=== PATIENT | male | born 1955 | race Caucasian/White ===

== ENCOUNTER → 2018-04-04 08:38 | Outpatient (CLI) | payer BC ==
--- NOTE | ~2018-04-04 | ST ---
PATIENT:VAISHALI BLANK MEDICAL RECORD: [id number] SEX: M LOCATION:[facility] ORDER #: ADMISSION DATE: 04/04/18 AGE OF PATIENT: 62 REFERRING PHYSICIAN: INTERPRETING PHYSICIAN: MORIAH SANDERS MD DATE OF SERVICE: 04/04/2018 PROCEDURE: Nuclear Stress Test. INDICATION: Angina, dyspnea on exertion, shortness of breath. DESCRIPTION: He was exercised on standard [place]an[place] protocol for 7 minutes, terminated due to achievement of maximum target heart rate response with 33 mCi of sestamibi injected at peak stress, 11 mCi were used previously for rest images. FINDINGS: Gated SPECT reveals a preserved ejection fraction of 54% with good wall motioning and thickening and brightening throughout all segments. SPECT imaging: Cardiolite was used as myocardial perfusion agent. There are definite reversible changes inferiorly. This includes the basal, mid, apical, inferior segments as well as the apex itself. The degree of reversibility is mild to moderate. The amount of myocardium involved is moderate. OVERALL IMPRESSION: 1. This is an abnormal nuclear stress test with reversibility inferiorly. 2. Gated SPECT reveals preserved ejection fraction at 54%. In this patient with ongoing symptomatology, the current scan does suggest the presence of hemodynamically significant coronary artery disease. We would proceed with coronary angiography as followup study. TRANSINT:[id number] Voice Confirmation ID: [id number] DOCUMENT ID: [id number] CC: richard Beavers found MORIAH SANDERS MD at 1718 CC: [id number] DICTATION DATE: 04/04/18 1620 TIRE TESTER: 04/05/18 0847 [facility] CLI 04/04/18 [place] [id number] [place] [id number]
== END | disposition home or self-care (01) ==
LOC: D.HCCARDIO 08:38
DX: Z03.89 Encounter for observation for other suspected diseases and conditions ruled out (principal)

== ENCOUNTER 2018-05-04 07:49 | Outpatient (CLI) | payer BC ==
--- NOTE | 2018-05-03 14:57 | HP ---
PATIENT: VAISHALI BLANK MEDICAL RECORD: [id number] ACCOUNT: [id number] LOCATION:[place] : 55 ADMISSION DATE: 05/04/18 PCP: VERA LERNER MD HISTORY AND PHYSICAL EXAMINATION DIAGNOSES: 1. Angina. 2. Abnormal nuclear stress test. HISTORY OF PRESENT ILLNESS: This is a gentleman who presents with anginal symptomatology. Risk stratified with stress testing Cardiolite imaging revealing reversible ischemia, now brought for cardiac catheterization. PHYSICAL EXAMINATION: GENERAL APPEARANCE: Well-nourished, well-developed, appears stated age. Level of distress, comfortable. PSYCHIATRIC: Mental status, alert, normal affect. Orientation, oriented to time, place and person. EYES: Lids and conjunctiva, noninjected. No discharge, no pallor. ENT: Lips, teeth, gums, normal dentition. Oropharynx, no cyanosis, no pallor. NECK: Carotid arteries, bilateral normal upstroke, no bruits, no thrills. JUGULAR VEINS: No jugular venous pressure or distention. CERVICAL LYMPH NODES: Nontender, nonenlarged. THYROID: Not enlarged. Nontender. No nodules. LUNGS: Respiratory effort, unlabored. CHEST: Normal curvature. No thoracic deformity. No chest wall tenderness. Percussion, resonant. Auscultation, clear. No wheezes, no rales, no rhonchi. CARDIOVASCULAR: Precordial exam, nondisplaced. No heaves or pericardial thrills. Rate and rhythm, regular. Heart sounds, normal S1, normal S2. No S3, no gallop, no rub. Systolic murmur, not heard. Diastolic murmur, not heard. EXTREMITIES: No cyanosis, no edema. Peripheral pulses, full and equal in all extremities, except as noted. No bruits appreciated. ABDOMEN: Soft, nondistended. Normal aorta. No bruit. Nontender. No masses. Liver, nontender, no hepatomegaly. Spleen, nontender, no splenomegaly. MUSCULOSKELETAL: No joint tenderness. No joint swelling. No erythema. NEUROLOGICAL: Normal gait, normal strength, normal tone. SKIN: Warm and dry. OVERALL IMPRESSION: Anginal symptomatology with reversibility on nuclear stress testing. There is a high likelihood he does have hemodynamically significant coronary artery disease. We will proceed with coronary angiography. Further care depends upon findings of the angiography. TRANSINT:[id number] Voice Confirmation ID: [id number] DOCUMENT ID: [id number] HISTORY AND PHYSICAL [id number] VAISHALI BLANK JEFFREY MD at 1457 CC: [id number] DICTATION DATE: 05/03/18 1148 FINAL EXPENSE AGENT: 05/03/18 1154 [place] [id number] [place] [id number]
[~2018-05-04] VITALS: Ht 175.3 cm; Wt 77.3 kg
--- NOTE | ~2018-05-04 | HEMODYNAMI ---
PATIENT:VAISHALI BLANK MEDICAL RECORD: [id number] : 55 LOCATION:[facility] ADMISSION DATE: 05/04/18 Generatedon:05/04/201810:25 Patient name: VAISHALI BLANK Patient #: [id number] SSN: D OB: 1955 Date of study: 05/04/2018 Page: Of Hemodynamic Procedure Report Patient Data Patient Demographics Procedure consent was obtained First Name: VAISHALI Gender: Male Last Name: ABHAY : 1955 [facility] Initial: NELLY Age: 62 year(s) Patient #: [id number] Race: Unknown Additional ID: [id number] Contact details [address]: [address] [place] [address] State: [place] City: [place] Zip code: [address] Admission Admission Data Admission Date: 05/04/2018 Admission Time: 7:49 Procedure Procedure Types Cath Procedure Diagnostic Procedure LHC LHC w/Coronaries FFR/IVUS Intra-Coronary IVUS Initial PCI Procedure Coronary Stent Coronary Stent Initial Procedure Description Procedure Date Procedure Date: 05/04/2018 Procedure Start Time: 10:07 Procedure End Time: 10:23 Procedure Staff Name Function Aníbal Marte MD Performing Physician Anu Reno RT Monitor Viktoriya Fisher RT Scrub Sunny Harley RN Nurse Procedure Data Cath Procedure Fluoroscopy Diagnostic fluoroscopy Total fluoroscopy Time: 3.7 time: 3.7 min min Diagnostic fluoroscopy Total fluoroscopy dose: 733 dose: 733 mGy mGy Contrast Material Contrast Material Type Amount (ml) Isovue 300 91 Entry Location Entry Primary Successful Side Size Upsize Upsize Entry Closure Antoine ccessful Closure Location (Fr) 1 (Fr) 2 (Fr) Remarks Device Remarks Radial Right 6 Fr Mechanical artery Short Compression Estimated blood loss: 10 ml Diagnostic catheters Device Type Used For End Catheter Placement DIAGNOSTIC Roach 110cm 5 Procedure Fr catheter ([id number]) Procedure Complications No complications Procedure Medications Medication Administration Route Dosage Oxygen etCO2 Nasal cannula 2 l/min Lidocaine 2% added to field 20 Heparin Flush Bag added to field 2 bags (1000units/500ml NS) 0.9% NaCl I.V. 100 ml/hr Radial Cocktail I.A. 1 syringe (Verapomil 2mg/Nitro 400mcg/Heparin 1500units) Versed I.V. 2 mg Fentanyl I.V. 100 mcg Heparin Bolus I.V. 4000 units Versed I.V. 0.5 mg Fentanyl I.V. 50 mcg Hemodynamics Rest Heart Rate: 85 (bpm) Snapshots Pre Cath Intra NCS Post Cath Vital Signs Time Heart Resp SPO2 etCO2 NIBP (mmHg) Rhythm Pain Sedation Rate (ipm) (%) (mmHg) Status Level (bpm) 9:34:14 70 18 99 0 133/73(102) NSR 0 (11) 10(A) , No pain 9:38:26 75 12 98 0 129/71(106) NSR 0 (11) 10(A) , No pain 9:42:40 74 17 96 37.6 123/64(82) NSR 0 (11) 10(A) , No pain 9:46:54 70 15 99 45.1 117/62(91) NSR 0 (11) 10(A) , No pain 9:51:04 71 19 99 46.6 121/64(82) NSR 0 (11) 10(A) , No pain 9:55:15 72 14 99 45.2 120/62(79) NSR 0 (11) 10(A) , No pain 9:59:29 68 14 99 42.9 107/55(83) NSR 0 (11) 10(A) , No pain 10:03:40 69 15 99 42.9 115/60(87) NSR 0 (11) 10(A) , No pain 10:07:51 72 12 99 45.9 107/62(81) NSR 0 (11) 9(A) , No pain 10:12:01 74 14 98 45.2 98/49(74) NSR 0 (11) 9(A) , No pain 10:16:58 73 14 99 47.4 114/57(88) NSR 0 (11) 9(A) , No pain 10:21:10 73 14 99 45.1 120/60(98) NSR 0 (11) 10(A) , No pain Medications Time Medication Route Dose Verified Delivered Reason Not es Effectiveness by by 9:37:18 Oxygen etCO2 2 l/min Aníbal Correa used for Nasal Rosanna Harley RN procedure cannula 9:37:24 Lidocaine 2% added 20ml Aníbal Spangler for local to vial Rosanna Marte MD anesthetic field 9:37:31 Heparin Flush added 2 bags Aníbal Spangler used for Bag to Rosanna Marte MD procedure (1000units/500ml field NS) 9:37:40 0.9% NaCl I.V. 100 Aníbal Lopezie Per physician ml/hr Rosanna Harley RN 9:46:56 Radial Cocktail I.A. 1 Aníbal Spangler for (Verapomil syringe Rosanna Marte MD vasodilation 2mg/Nitro 400mcg/Heparin 1500units) 10:06:22 Versed I.V. 2 mg Aníbal Lopezie for sedation Rosanna Harley RN 10:06:27 Fentanyl I.V. 100 mcg Aníbal Correa for sedation Rosanna Harley RN 10:10:03 Versed I.V. 0.5 mg Aníbal Correa for sedation Rosanna Harley RN 10:10:08 Fentanyl I.V. 50 mcg Aníbal Correa for sedation Rosanna Harley RN 10:13:52 Heparin Bolus I.V. 4000 Aníbal Lopezie for bethanie ified units Rosanna Harley RN anticoagulation with dr marte Procedure Log Time Note 9:20:37 Anu Reno RT(R) sent for patient. Start room use. 9:25:38 Time tracking: Regular hours (M-F 7:00 - 5:00) 9:25:42 Plan of Care:Hemodynamics will remain stable., Cardiac rhythm will remain stable., Comfort level will be maintained., Respiratory function will remain adequate., Patient/ family verbilizes understanding of procedure., Procedure tolerated without complication., Recovers from procedure without complications.. 9:25:51 Patient received from Pre/Post Procedure Room to CCL 2 Alert and oriented. Tansferred to table in Supine position. 9:25:52 Warm blankets applied, and bryan hugger turned on for patient comfort. 9:25:53 Correct patient and procedure confirmed by team. 9:25:54 Signed procedure consent form obtained from patient. 9:25:55 ECG and BP/O2 sat monitors applied to patient. 9:33:05 Vital chart was started 9:33:06 Baseline sample Acquired. 9:33:09 Full Disclosure recording started 9:33:12 H&P Date Dictated: 05/04/2018 Within 30 days and on chart., H&P Addendum completed by physician on day of procedure. (MUST COMPLETE FOR ALL OUTPATIENTS). 9:33:13 Pre-procedure instructions explained to patient. 9:33:13 Pre-op teaching completed and patient verbalized understanding. 9:33:15 Family in waiting room. 9:33:16 Patient NPO since Midnight. 9:33:18 Is the patient allergic to Iodine/contrast media? No. 9:33:19 Was the patient premedicated? No 9:33:20 Is patient on blood thinner?Yes 9:33:23 ACC The patient was administered the following blood thiners within the last 24 hours: ACCPlavix 9:33:25 Patient diabetic? No. 9:33:27 Previous problem with sedation/anesthesia? No ? 9:33:29 Snore? Yes 9:33:30 Sleep apnea? No 9:33:32 Deviated septum? No 9:33:34 Opens mouth fully? Yes 9:33:34 Sticks out tongue? Yes 9:33:36 Airway obstruction? No ? 9:33:38 Dentures? No ? 9:33:41 Pre procedure: right dorsailis pedis pulse 2+ Normal; easily identifiable; not easily obliterated 9:33:46 Pre procedure: left dorsailis pedis pulse 2+ Normal; easily identifiable; not easily obliterated 9:33:48 Patient pain scale 0/10 ?. 9:33:53 IV patent on arrival in left forearm with 0.9% NaCl at KVO. 9:33:55 Lab results completed and on chart. 9:34:01 Right Radial & Right Groin area was prepped with chlora-prep and draped in sterile fashion 9:34:01 Alarms reviewed by R. N. 9:34:02 Sharps counted by scrub and verified by R.N. 9:37:18 Oxygen 2 l/min etCO2 Nasal cannula was administered by Sunny Harley RN; used for procedure; 9:37:24 Lidocaine 2% 20ml vial added to field was administered by Aníbal Marte MD; for local anesthetic; 9:37:31 Heparin Flush Bag (1000units/500ml NS) 2 bags added to field was administered by Aníbal Marte MD; used for procedure; 9:37:40 0.9% NaCl 100 ml/hr I.V. was administered by Sunny Harley RN; Per physician; 9:46:56 Radial Cocktail (Verapomil 2mg/Nitro 400mcg/Heparin 1500units) 1 syringe I.A. was administered by Aníbal Marte MD; for vasodilation; 9:52:09 Baseline sample Acquired. 10:02:24 Physician arrived 10:: --------ALL STOP TIME OUT------ 10:02:26 Final Timeout: patient, procedure, and site verified with staff and physician. All members of the team are in agreement. 10:02:29 Right Radial & Right Groin site verified by team. 10:02:33 Physical assessment completed. ASA score P 2 - A patient with mild systemic disease as per Aníbal Marte MD. 10:02:38 Sedation plan: IV Moderate Sedation Medication:Versed, Fentanyl 10:06:22 Versed 2 mg I.V. was administered by Sunny Harley RN; for sedation; 10:06:27 Fentanyl 100 mcg I.V. was administered by Sunny Harley RN; for sedation; 10:06:38 Use device set Radial Dx or PCI 10:06:41 Procedure started. 10:07:01 Local anesthetic to right radial artery with Lidocaine 2% by Aníbal Marte MD.INITIAL ACCESS ONLY 10:07:16 A 6 Fr Short sheath was inserted into the Right Radial artery 10:07:55 ACIST Syringe (47846) opened to sterile field. 10:07:56 Medline Cath Pack ([id number]) opened to sterile field. 10:07:57 Bag Decanter () opened to sterile field. 10:07:58 DIAGNOSTIC WIRE .035 260cm J wire (337575) opened to sterile field. 10:07:59 Tegaderm 4 x 4 (1626W) opened to sterile field. 10:08:02 MBrace Wrist Support ([id number]) opened to sterile field. 10:08:29 A DIAGNOSTIC Roach 110cm 5 Fr catheter (085222) was advanced over the wire and used for Procedure. 10:08:31 SHEATH 6FR Slender (80-9780) opened to sterile field. 10:09:05 LV angiography performed. 10:09:08 LV gram done using RAYMOND 10:09:25 LCA angiography performed. 10:: EF : 60 % 10:10:03 Versed 0.5 mg I.V. was administered by Sunny Harley RN; for sedation; 10::08 Fentanyl 50 mcg I.V. was administered by Sunny Harley RN; for sedation; 10:: RCA angiography performed. 10:10:28 Catheter removed. 10:13:52 Heparin Bolus 4000 units I.V. was administered by Sunny Harley RN; for anticoagulation; verified with dr marte 10:13:57 Proceeding to intervention. 10:14:11 INFLATOR Merit BasixCompak (HK8603) opened to sterile field. 10:14:11 CHOICE PT Extra Support 182cm wire ([id number]) opened to sterile field. 10:14:12 [place] Eagleye IVUS Catheter (05834I) opened to sterile field. 10:14:13 GUIDE 6FR XBLAD 3.5 catheter (95722744) opened to sterile field. 10:14:26 6 Fr XBLAD3.5 guide catheter was inserted over the wire 10:14:30 choice wire advanced. 10:14:32 Wire advanced across lesion. 10:17:40 IVUS catheter advanced over wire. 10:17:46 IVUS catheter removed over wire. 10:18:21 Place stent Inflation Number: 1 A INTEGRITY RX 3.0 x 22 stent ([id number]) was prepped and advanced across the Mid LAD. The stent was deployed at 15 TYRONE for 0:14 (min:sec). 10:18:42 TR BAND Standard (BUT22IMJ) opened to sterile field. 10:18:44 ACIST Hand Control (05594) opened to sterile field. 10:18:45 ACIST Manifold (93386) opened to sterile field. 10:20:35 Wire removed. 10:20:36 Guide catheter removed. 10:20:48 Sheath removed intact; hemostasis achieved with Mechanical Compression to the Right Radial artery. 10:20:51 Procedure ended.(Physican Out) 10:21:02 Fluoroscopy time 03.70 minutes. 10:21:07 Fluoroscopy dose: 733 mGy 10:21:07 Flurop Dose total: 733 10:21:14 Contrast amount:Isovue 300 91ml. 10:22:19 TR band inflated with 10cc of air. 10:22:21 Insertion/operative site no bleeding no hematoma. 10:22:23 Post Procedure Pulses reassessed and unchanged 10:22:26 Post-procedure physical assessment completed. ASA score P 2 - A patient with mild systemic disease as per Aníbal Marte MD. 10:22:35 Post procedure rhythm: unchanged. 10:22:37 Estimated blood loss: 10 ml 10:22:39 Post procedure instruction explained to patient.Patient verbalizes understanding. 10:23:09 Procedure type changed to Cath procedure, Diagnostic procedure, LHC, LHC w/Coronaries, FFR/IVUS, Intra-Coronary IVUS Initial, PCI procedure, Coronary Stent, Coronary Stent Initial 10:23:11 Procedure and supply charges have been captured, reviewed, submitted and are correct. 10:23:38 Procedure Complication : No complications 10:23:41 Vital chart was stopped 10:23:42 See physician's report for complete and final results. 10:23:43 Report given to Pre/Post Procedure Room. 10:23:47 Patient transfered to Pre/Post Procedure Room with Stretcher. 10:23:49 Procedure ended. 10:23:49 Full Disclosure recording stopped 10:23:53 End room use (Document Last) Intervention Summary Intervention Notes Time ActionType Lesion and Equipment Action# Pressure Duration Attributes Used 10:18:21 Place stent Mid LAD INTEGRITY RX 1 15 00:14 3.0 x 22 stent ([id number]) Device Usage Item Name Manufacture Quantity Catalog Number Hospital Part Current [facility] Lot# / Charge Number Stock Stock Serial# Code ACIST Acist 1 78892 054229 530239 718647 20 Syringe Human Longevity (74758) Systems Inc Medline Cath Medline 1 [id number] 389540 52308 174516 5 Pack ([id number]) Bag Decanter Microtek 1 2001S 990135 62913 243802 5 () Medical Inc. DIAGNOSTIC St Amadou 1 744743 070564 885613 377593 30 WIRE .035 260cm J wire (655369) Tegaderm 4 x 3M 1 1626W 523188 169216 397720 5 4 (1626W) MBrace Wrist Advanced 1 140-0250-00 552446 47606 106705 5 Support Vascular ([id number]) Dynamics DIAGNOSTIC Terumo 1 40-4233 184219 332781 993024 5 Roach 110cm 5 Fr catheter (400902) SHEATH 6FR Terumo 1 [id number] 459935 565212 536561 5 Slender (80-1060) INFLATOR Merit 1 [id number] 166477 338948 654183 15 [facility] Medical BasixCompak (MS5828) CHOICE PT Herrick 1 [id number] 381848 346730 454603 5 Extra Scientific Support 182cm wire ([id number]) Durham Durham 1 35229E 884718 904261 614773 8 [place] Eagleye IVUS Catheter (57123T) GUIDE 6FR Cardinal 1 [id number] 954948 134694 784498 10 XBLAD 3.5 Health catheter (91162519) INTEGRITY RX Medtronic 1 [id number] 817343 956542 629841 5 [id number] 3.0 x 22 stent ([id number]) TR BAND Terumo 1 [id number] 131037 784666 000496 40 Standard ([id number]) ACIST Hand Acist 1 43441 313058 067283 425006 5 Control Medical (62277) Systems Inc ACIST Acist 1 62634 218384 571845 959620 5 Manifold Medical (11817) Systems Inc Signature Audit [place] Stage Time Signature Unsigned Intra-Procedure 05/04/2018 Anu Reno 10:25:05 AM RT(R) Signatures Monitor : Anu Reno Signature : RT Date : Time : [facility] [address] [place] [address]
[2018-05-04] MEDS ORDERED: PLAVIX75 MG PO ×2 (08:04→10:47)
[2018-05-04 08:12] VITALS: BP 143/57; Ht 175.3 cm; Wt 77.3 kg
[2018-05-04 08:30] LABS: CALC OSMOLALITY 280 mosm/kg (275-300); CALCIUM 9.1 mg/dL (8.5-10.1); CARBON DIOXIDE 26.7 mmol/L (21.0-32.0); CHLORIDE - SERUM 105 mmol/L (98-107); GLUCOSE 94 mg/dL (74-106); SODIUM 140 mmol/L (136-145); UREA NITROGEN 19 mg/dL (7-18); eGFR NON AFRICAN AMERICAN 80 mL/min (90-120)
[2018-05-04 09:03] LABS: BASOPHILS 0.1 % (0-2); EOSINOPHILS 2.2 % (0-7); HEMATOCRIT 47.3 % (42.0-54.0); HEMOGLOBIN 16.3 g/dL (13.5-17.5); IMMATURE GRANULOCYTES 0.3 % (0-5); LYMPHOCYTES 17.9 % (15-50); MCH 30.1 pg (26.0-34.0); MCHC 34.5 g/dL (31.0-37.0); MCV 87.4 fL (80.0-100.0); MEAN PLATELET VOLUME 10.3 fL (7.4-10.4); MONOCYTES 9.5 % (2-11); PLATELET COUNT 254 10x3/uL (130-400); RBC 5.41 10x6/uL (4.20-6.10); RDW 13.4 % (11.5-14.5); WBC 10.6 10x3/uL (4.8-10.8)
[2018-05-04] MEDS ORDERED: BAYER CHEWABLE81 MG PO (10:48)
--- NOTE | 2018-05-04 13:37 | OP ---
PATIENT NAME: VAISHALI BLANK MEDICAL RECORD: [id number] :55 LOCATION:D.CAT ADMISSION DATE: SURGEON: MORIAH SANDERS MD DATE OF OPERATION: 05/04/2018 PROCEDURES: 1. PTCA and stent of LAD. 2. Intravascular ultrasound of the LAD. 3. Left heart catheterization. 4. Selective coronary angiography. 5. Left ventriculogram. INDICATION: Angina and coronary artery disease. PROCEDURE IN DETAIL: After informed consent was obtained and after a detailed explanation of risks, benefits as well as alternative therapies, the patient elected to proceed with angiogram and angioplasty. The right radial area was prepped and draped in normal sterile fashion. Right radial artery was cannulated via modified Seldinger technique with placement of 6-Canadian sheath. All catheters exchanged through this sheath. FINDINGS: The left ventriculogram was performed in a standard 30-degree RAYMOND view, reveals good cardiac wall motion throughout all segments. Overall ejection fraction estimated 60%. SELECTIVE CORONARY ANGIOGRAPHY: 1. Left main is with no significant angiographic disease. 2. Left anterior descending has greater than 80% stenosis in the mid vessel confirmed by intravascular ultrasound. 3. The left circumflex has mild irregularities, but no flow-limiting stenosis. 4. The right coronary has a questionable area of stenosis in the mid vessel that would be better delineated by intravascular ultrasound and a definite 80% stenosis in the distal vessel. PTCA AND STENT OF THE LAD: The stent used is a 3.0 x 22-mm Integrity. Result was 0% residual stenosis. OVERALL IMPRESSION: Successful PTCA and stent of the LAD going from 80% initial stenosis to 0% residual. PLAN: PTCA and stent of the RCA in the near future. TRANSINT:[id number] Voice Confirmation ID: [id number] DOCUMENT ID: [id number] MORIAH SANDERS MD at 1337 CC: [id number] DICTATION DATE: 05/04/18 1022 OIL REFINERY OPERATOR: 05/04/18 1128 [facility] [address] [place] [address]
== END 2018-05-04 14:45 ==
LOC: D.CATH 07:49
PROVIDERS: Internal Medicine Interventional Cardiology
DX: I25.119 Atherosclerotic heart disease of native coronary artery with unspecified angina pectoris (principal); R94.30 Abnormal result of cardiovascular function study, unspecified; Z01.812 Encounter for preprocedural laboratory examination

== ENCOUNTER 2018-05-11 07:57 | Outpatient (CLI) | payer BC ==
[~2018-05-11] VITALS: Ht 175.3 cm; Wt 77.3 kg
--- NOTE | ~2018-05-11 | HP ---
PATIENT: VAISHALI BLANK MEDICAL RECORD: [id number] ACCOUNT: [id number] LOCATION:[place] : 55 ADMISSION DATE: 05/11/18 PCP: VERA LERNER MD HISTORY AND PHYSICAL EXAMINATION ADMITTING DIAGNOSES: 1. Angina. 2. Coronary artery disease. 3. Recent percutaneous transluminal coronary angioplasty stent to left anterior descending with concomitant disease right coronary artery. HISTORY OF PRESENT ILLNESS: This is a gentleman who presents with anginal symptomatology, found to have 2-vessel coronary artery disease of the LAD and RCA, underwent successful PTCA stent of the LAD, now brought back for intervention on the RCA. PHYSICAL EXAMINATION: GENERAL APPEARANCE: Well-nourished, well-developed, appears stated age. Level of distress, comfortable. PSYCHIATRIC: Mental status, alert, normal affect. Orientation, oriented to time, place and person. EYES: Lids and conjunctiva, noninjected. No discharge, no pallor. ENT: Lips, teeth, gums, normal dentition. Oropharynx, no cyanosis, no pallor. NECK: Carotid arteries, bilateral normal upstroke, no bruits, no thrills. JUGULAR VEINS: No jugular venous pressure or distention. CERVICAL LYMPH NODES: Nontender, nonenlarged. THYROID: Not enlarged. Nontender. No nodules. LUNGS: Respiratory effort, unlabored. CHEST: Normal curvature. No thoracic deformity. No chest wall tenderness. Percussion, resonant. Auscultation, clear. No wheezes, no rales, no rhonchi. CARDIOVASCULAR: Precordial exam, nondisplaced. No heaves or pericardial thrills. Rate and rhythm, regular. Heart sounds, normal S1, normal S2. No S3, no gallop, no rub. Systolic murmur, not heard. Diastolic murmur, not heard. EXTREMITIES: No cyanosis, no edema. Peripheral pulses, full and equal in all extremities, except as noted. No bruits appreciated. ABDOMEN: Soft, nondistended. Normal aorta. No bruit. Nontender. No masses. Liver, nontender, no hepatomegaly. Spleen, nontender, no splenomegaly. MUSCULOSKELETAL: No joint tenderness. No joint swelling. No erythema. NEUROLOGICAL: Normal gait, normal strength, normal tone. SKIN: Warm and dry. OVERALL IMPRESSION: Anginal symptomatology with disease of the right coronary artery. We will proceed with transcatheter revascularization of the right coronary artery. TRANSINT:[id number] Voice Confirmation ID: [id number] DOCUMENT ID: [id number] HISTORY AND PHYSICAL [id number] VAISHALI BLANK JEFFREY MD CC: [id number] DICTATION DATE: 05/11/18904 WEIGHT GUESSER: 05/11/18934 [facility] [place] [address] [place] [id number]
--- NOTE | ~2018-05-11 | OP ---
PATIENT NAME: VAISHALI BLANK MEDICAL RECORD: [id number] :55 LOCATION:D.CAT ADMISSION DATE: SURGEON: MORIAH SANDERS MD DATE OF OPERATION: 05/11/2018 DATE OF SERVICE: 05/11/2018 PROCEDURES: 1. PTCA stent RCA. 2. Intravascular ultrasound RCA. 3. Selective coronary angiography. INDICATION: Angina and coronary artery disease. PROCEDURE IN DETAIL: After informed consent was obtained and after a detailed description of risks, benefits as well as alternative therapies, the patient elected to proceed with angiogram and angioplasty. The right radial area was prepped, draped in normal sterile fashion. Right radial artery was cannulated via modified Seldinger technique with placement of 6-Cuban sheath. All catheters exchanged through this sheath. FINDINGS: The right coronary has greater than 80% stenosis proximally confirmed by intravascular ultrasound. This was addressed with a 3.5 x 22 mm Integrity stent. Result was 0% residual stenosis. OVERALL IMPRESSION: Successful percutaneous transluminal coronary angioplasty stent of the right coronary artery going from 80% initial stenosis to 0% residual. TRANSINT:[id number] Voice Confirmation ID: [id number] DOCUMENT ID: [id number] MORIAH SANDERS MD CC: [id number] DICTATION DATE: 05/11/18 1032 SPECIALTY FINISHING UTILITY PERSON: 05/11/18 1105 [facility] [address] [place] [id number]
--- NOTE | ~2018-05-11 | HEMODYNAMI ---
PATIENT:VAISHALI BLANK MEDICAL RECORD: [id number] : 55 LOCATION:[facility] ADMISSION DATE: 05/11/18 Generatedon:05/11/201810:34 Patient name: VAISHALI BLANK Patient #: [id number] SSN: D OB: 1955 Date of study: 05/11/2018 Page: Of Hemodynamic Procedure Report Patient Data Patient Demographics Procedure consent was obtained First Name: VAISHALI Gender: Male Last Name: ABHAY : 1955 [facility] Initial: NELLY Age: 62 year(s) Patient #: [id number] Race: Unknown Additional ID: [id number] Contact details [address]: [address] [place] [address] State: [place] City: [place] Zip code: [address] Admission Admission Data Admission Date: 05/11/2018 Admission Time: 7:57 Weight (lbs.): 169.76 Weight (kg.): 77 Lab Results Lab Result Date: 05/11/2018 Lab Result Time: 0:00 Biochemistry Name Units Result Min Max BUN mg/dl 17 --(---*)-- 7 18 Creatinine mg/dl 1 --(--*-)-- 0.6 1.3 CBC Name Units Result Min Max Hemoglobin g/dl 14.7 --(-*--)-- 13.5 17.5 Procedure Procedure Types Cath Procedure Diagnostic Procedure FFR/IVUS Intra-Coronary IVUS Initial PCI Procedure Coronary Stent Coronary Stent Initial Procedure Description Procedure Date Procedure Date: 05/11/2018 Procedure Start Time: 10:18 Procedure End Time: 10:33 Procedure Staff Name Function Aníbal Marte MD Performing Physician Viktoriya Fisher RT Scrub Sunny Harley RN Nurse Kuldeep Morrison RT Monitor Procedure Data Cath Procedure Fluoroscopy Diagnostic fluoroscopy Total fluoroscopy Time: 3.9 time: 3.9 min min Diagnostic fluoroscopy Total fluoroscopy dose: 307 dose: 307 mGy mGy Contrast Material Contrast Material Type Amount (ml) Isovue 300 55 Entry Location Entry Primary Successful Side Size Upsize Upsize Entry Closure Antoine ccessful Closure Location (Fr) 1 (Fr) 2 (Fr) Remarks Device Remarks Radial Right 6 Fr Mechanical artery Short Compression Estimated blood loss: 10 ml Procedure Complications No complications Procedure Medications Medication Administration Route Dosage Oxygen etCO2 Nasal cannula 2 l/min Lidocaine 2% added to field 20 Heparin Flush Bag added to field 2 bags (1000units/500ml NS) 0.9% NaCl I.V. 100 ml/hr Versed I.V. 1 mg Fentanyl I.V. 50 mcg Heparin Bolus I.V. 4000 units Versed I.V. 1 mg Fentanyl I.V. 50 mcg Radial Cocktail I.A. 1 syringe (Verapomil 2mg/Nitro 400mcg/Heparin 1500units) Hemodynamics Rest HGB: 14.7 (g/dl) Heart Rate: 0 (bpm) Snapshots Pre Cath Intra NCS Post Cath Vital Signs Time Heart Resp SPO2 etCO2 NIBP (mmHg) Rhythm Pain Sedation Rate (ipm) (%) (mmHg) Status Level (bpm) 9:36:16 80 13 94 0 127/70(88) NSR 0 (11) 10(A) , No pain 9:40:30 72 14 98 23.1 128/64(87) NSR 0 (11) 10(A) , No pain 9:44:42 72 13 97 37.2 129/71(103) NSR 0 (11) 10(A) , No pain 9:48:54 74 14 96 37.2 142/72(92) NSR 0 (11) 10(A) , No pain 9:53:12 72 16 96 37.2 128/67(86) NSR 0 (11) 10(A) , No pain 9:57:26 75 14 95 39.5 125/64(86) NSR 0 (11) 10(A) , No pain 10:01:38 72 14 96 35 118/66(89) NSR 0 (11) 10(A) , No pain 10:05:48 72 14 95 41.7 123/63(86) NSR 0 (11) 10(A) , No pain 10:10:00 69 12 96 43.2 111/62(81) NSR 0 (11) 9(A) , No pain 10:14:10 71 11 95 43.9 112/59(86) NSR 0 (11) 9(A) , No pain 10:18:18 66 12 95 42.4 114/63(88) NSR 0 (11) 9(A) , No pain 10:22:30 77 12 93 39.5 106/53(74) NSR 0 (11) 9(A) , No pain 10:26:40 71 13 93 38 110/52(88) NSR 0 (11) 9(A) , No pain 10:30:50 75 13 94 37.3 107/60(85) NSR 0 (11) 10(A) , No pain Medications Time Medication Route Dose Verified Delivered Reason Not es Effectiveness by by 9:41:20 Oxygen etCO2 2 l/min Aníbal Correa used for Nasal Rosanna Harley RN procedure cannula 9:41:26 Lidocaine 2% added 20ml Aníbal Spangler for local to vial Rosanna Marte MD anesthetic field 9:41:32 Heparin Flush added 2 bags Aníbal Spangler for local Bag to Rosanna Marte MD anesthetic (1000units/500ml field NS) 9:41:41 0.9% NaCl I.V. 100 Aníbal Correa Per physician ml/hr Rosanna aHrley RN 10:04:00 Versed I.V. 1 mg Aníbal Correa for sedation Rosanna Harley RN 10:04:05 Fentanyl I.V. 50 mcg Aníbal Correa for sedation Rosanna Harley RN 10:10:09 Versed I.V. 1 mg Aníbal Correa for sedation Rosanna Harley RN 10:10:12 Fentanyl I.V. 50 mcg Aníbal Correa for sedation Rosanna Harley RN 10:19:05 Heparin Bolus I.V. 4000 Aníbal Correa for bethanie ified units Rosanna Harley RN anticoagulation with dr marte 10:19:39 Radial Cocktail I.A. 1 Aníbal Spangler for (Verapomil syringe Rosanna Marte MD vasodilation 2mg/Nitro 400mcg/Heparin 1500units) Procedure Log Time Note 9:20:16 Sunny Harley RN sent for patient. Start room use. 9:31:22 Time tracking: Regular hours (M-F 7:00 - 5:00) 9:31:27 Plan of Care:Hemodynamics will remain stable., Cardiac rhythm will remain stable., Comfort level will be maintained., Respiratory function will remain adequate., Patient/ family verbilizes understanding of procedure., Procedure tolerated without complication., Recovers from procedure without complications.. 9:31:38 Patient received from Pre/Post Procedure Room to CCL 2 Alert and oriented. Tansferred to table in Supine position. 9:31:39 Warm blankets applied, and bryan hugger turned on for patient comfort. 9:31:39 Correct patient and procedure confirmed by team. 9:31:40 Signed procedure consent form obtained from patient. 9:31:41 ECG and BP/O2 sat monitors applied to patient. 9:35:07 Baseline sample Acquired. 9:35:07 Vital chart was started 9:35:18 Rhythm: sinus rhythm 9:35:20 Full Disclosure recording started 9:35:24 H&P Date Dictated: 05/11/2018 Within 30 days and on chart., H&P Addendum completed by physician on day of procedure. (MUST COMPLETE FOR ALL OUTPATIENTS). 9:35:26 Pre-procedure instructions explained to patient. 9:35:26 Pre-op teaching completed and patient verbalized understanding. 9:35:27 Family in waiting room. 9:35:29 Patient NPO since Midnight. 9:35:31 Is the patient allergic to Iodine/contrast media? No. 9:35:32 Was the patient premedicated? No 9:35:33 Is patient on blood thinner?Yes 9:35:43 ACC The patient was administered the following blood thiners within the last 24 hours: ACCPlavix 9:35:45 Patient diabetic? No. 9:35:47 Previous problem with sedation/anesthesia? No ? 9:35:49 Snore? No 9:35:50 Sleep apnea? No 9:35:51 Deviated septum? No 9:35:52 Opens mouth fully? Yes 9:35:53 Sticks out tongue? Yes 9:35:54 Airway obstruction? No ? 9:35:57 Dentures? No ? 9:36:00 Pre procedure: right dorsailis pedis pulse 1+ Palpable, but thready & weak; easily obliterated 9:36:03 Pre procedure: left dorsailis pedis pulse 1+ Palpable, but thready & weak; easily obliterated 9:36:05 Patient pain scale 0/10 ?. 9:36:11 IV patent on arrival in left antecubital with 0.9% NaCl at [facility]. 9:36:13 Lab results completed and on chart. 9:36:29 Right Radial & Right Groin area was prepped with chlora-prep and draped in sterile fashion 9:36:30 Alarms reviewed by R. N. 9:36:30 Sharps counted by scrub and verified by R.N. 9:41:20 Oxygen 2 l/min etCO2 Nasal cannula was administered by Sunny Harley RN; used for procedure; 9:41:26 Lidocaine 2% 20ml vial added to field was administered by Aníbal Marte MD; for local anesthetic; 9:41:32 Heparin Flush Bag (1000units/500ml NS) 2 bags added to field was administered by Aníbal Marte MD; for local anesthetic; 9:41:41 0.9% NaCl 100 ml/hr I.V. was administered by Sunny Harley RN; Per physician; 9:54:29 Baseline sample Acquired. 9:57:26 Zero performed for pressure channel P1 9:57:45 Use device set Radial Dx or PCI 9:57:48 Use device set TAUTH PCI 9:57:51 Tegaderm 4 x 4 ([id number]) opened to sterile field. 9:57:52 ACIST Manifold (73732) opened to sterile field. 9:57:53 ACIST Hand Control (67351) opened to sterile field. 9:57:54 ACIST Syringe (10144) opened to sterile field. 9:57:55 Medline Cath Pack ([id number]) opened to sterile field. 9:57:55 Bag Decanter () opened to sterile field. 9:57:55 DIAGNOSTIC WIRE .035 260cm J wire (986445) opened to sterile field. 9:57:57 MBrace Wrist Support ([id number]) opened to sterile field. 9:57:58 SHEATH 6FR Slender (80-5456) opened to sterile field. 9:58:08 CHOICE PT Extra Support 182cm wire ([id number]) opened to sterile field. 9:59:34 Patient Weight : 169.76 lbs 9:59:53 Lab Result : Hemoglobin 14.7 g/dl 9:59:53 Lab Result : Creatinine 1 mg/dl 9:59:53 Lab Result : BUN 17 mg/dl 9:59:59 --------ALL STOP TIME OUT------ 9:59:59 Final Timeout: patient, procedure, and site verified with staff and physician. All members of the team are in agreement. 10:00:02 Right Radial & Right Groin site verified by team. 10:00:04 Physical assessment completed. ASA score P 2 - A patient with mild systemic disease as per Aníbal Marte MD. 10:00:07 Sedation plan: IV Moderate Sedation Medication:Versed, Fentanyl 10:03:32 INFLATOR Merit BasixCompak (ZU5135) opened to sterile field. 10:04:00 Versed 1 mg I.V. was administered by Sunny Harley RN; for sedation; 10:04:05 Fentanyl 50 mcg I.V. was administered by Sunny Harley RN; for sedation; 10:10:09 Versed 1 mg I.V. was administered by Sunny Harley RN; for sedation; 10:10:12 Fentanyl 50 mcg I.V. was administered by Sunny Harley RN; for sedation; 10:18:49 Procedure started. 10:18:54 Local anesthetic to right radial artery with Lidocaine 2% by Aníbal Marte MD.INITIAL ACCESS ONLY 10:19:05 Heparin Bolus 4000 units I.V. was administered by Sunny Harley RN; for anticoagulation; verified with dr marte 10:19:35 A 6 Fr Short sheath was inserted into the Right Radial artery 10:19:39 Radial Cocktail (Verapomil 2mg/Nitro 400mcg/Heparin 1500units) 1 syringe I.A. was administered by Aníbal Marte MD; for vasodilation; 10:19:51 [place] IVUS Catheter ([id number]) opened to sterile field. 10:19:52 GUIDE 6FR AR 2.0 SH catheter ([id number]) opened to sterile field. 10:20:32 6 Fr AR 2 SH guide catheter was inserted over the wire 10:22:07 CPTXS wire advanced. 10:22:46 Wire removed. unable to cross lesion. 10:23:29 Guide catheter removed. 10:23:41 GUIDE 6FR HS II SH catheter ([id number]) opened to sterile field. 10:24:04 CHOICE PT Extra Support 182cm wire ([id number]) opened to sterile field. 10:24:20 CPTXS wire advanced. 10:24:57 Wire advanced across lesion. 10:25:00 IVUS catheter advanced over wire. 10:26:01 IVUS pass to RCA lesion performed. 10:26:03 IVUS catheter removed over wire. 10:27:28 Place stent Inflation Number: 1 A INTEGRITY RX 3.5 x 22 stent ([id number]) was prepped and advanced across the Mid RCA. The stent was deployed at 13 TYRONE for 0:10 (min:sec). 10:27:51 Stent catheter was removed intact over wire. 10:27:52 Wire removed. 10:27:52 Guide catheter removed. 10:28:42 TR BAND Standard ([id number]) opened to sterile field. 10:28:55 Sheath removed intact; hemostasis achieved with Mechanical Compression to the Right Radial artery. 10:28:57 Procedure ended.(Physican Out) 10:29:09 Fluoroscopy time 03.90 minutes. 10:29:13 Flurop Dose total: 307 10:29:13 Fluoroscopy dose: 307 mGy 10:29:18 Contrast amount:Isovue 300 55ml. 10:29:20 Sharps counted by scrub and verified by R.N. 10:29:26 TR band inflated with 10cc of air. 10:29:27 Insertion/operative site no bleeding no hematoma. 10:29:28 Post Procedure Pulses reassessed and unchanged 10:29:31 Post-procedure physical assessment completed. ASA score P 2 - A patient with mild systemic disease as per Aníbal Marte MD. 10:29:33 Post procedure rhythm: unchanged. 10:29:35 Estimated blood loss: 10 ml 10:29:37 Post procedure instruction explained to patient.Patient verbalizes understanding. 10:29:37 Patient needs reinforcement of post procedure teaching. 10:29:45 Procedure type changed to Cath procedure, Diagnostic procedure, FFR/IVUS, Intra-Coronary IVUS Initial, PCI procedure, Coronary Stent, Coronary Stent Initial 10:29:48 Procedure and supply charges have been captured, reviewed, submitted and are correct. 10:29:50 Procedure Complication : No complications 10:33:07 Vital chart was stopped 10:33:07 See physician's report for complete and final results. 10:33:10 Report given to Pre/Post Procedure Room. 10:33:13 Patient transfered to Pre/Post Procedure Room with Stretcher. 10:33:15 Procedure ended. 10:33:15 Full Disclosure recording stopped 10:33:25 End room use (Document Last) Intervention Summary Intervention Notes Time ActionType Lesion and Equipment Action# Pressure Duration Attributes Used 10:27:28 Place stent Mid RCA INTEGRITY RX 1 13 00:10 3.5 x 22 stent ([id number]) Device Usage Item Name Manufacture Quantity Catalog Number Hospital Part Current Mini mal Lot# / Charge Number Stock Stock Serial# Code Tegaderm 4 x 3M 1 1626W [id number] 353241 100237 5 4 (1626W) ACIST Acist 1 60326 162215 504071 584711 5 Manifold Medical (15652) Systems Inc ACIST Hand Acist 1 81556 947257 823555 932817 5 Control Medical (35396) Systems Inc ACIST Acist 1 06654 229033 433580 736061 20 Syringe Medical (71232) Systems Inc Medline Cath Medline 1 [id number] 878069 15981 695522 5 Pack ([id number]) Bag Decanter Microtek 1 2001S 195956 14389 106361 5 (2001S) Medical Inc. DIAGNOSTIC [place] 1 964935 605123 477266 662769 30 WIRE .035 260cm J wire (701341) MBrace Wrist Advanced 1 140-0250-00 204370 33398 417259 5 Support Vascular ([id number]) Dynamics SHEATH 6FR [place] 1 [id number] 571793 332534 461435 5 Slender (80-1060) CHOICE PT [place] 2 [id number] 903452 802882 794255 5 Extra Scientific Support 182cm wire (7651728G6) INFLATOR Merit 1 QR0040 455170 963933 004778 15 Merit Medical BasixCompak (DK6379) [place] 1 22310P 930007 914462 593539 8 [place] IVUS Catheter (13593C) GUIDE 6FR AR Medtronic 1 [id number] 621250 31996 233871 1 2.0 SH catheter ([id number]) GUIDE 6FR HS Medtronic 1 [id number] 059485 85188 405422 1 II SH catheter ([id number]) INTEGRITY RX Medtronic 1 [id number] 867037 556984 841364 5 [id number] 3.5 x 22 stent ([id number]) TR BAND Terumo 1 [id number] 504774 177584 894570 40 Standard ([id number]) Signature Audit [place] Stage Time Signature Unsigned Intra-Procedure 05/11/2018 Kuldeep Morrison 10:33:58 AM RT(R) Signatures Monitor : Kuldeep Morrison RT Signature : Date : Time : [address] [place] [address]
[~2018-05-11 07:57] MED LIST: BAYER CHEWABLE81 MG PO; PLAVIX75 MG PO
[2018-05-11 08:35] VITALS: BP 124/58; Ht 175.3 cm; Wt 77.3 kg
[2018-05-11 08:56] LABS: BASOPHILS 0.2 % (0-2); HEMATOCRIT 42.7 % (42.0-54.0); HEMOGLOBIN 14.7 g/dL (13.5-17.5); IMMATURE GRANULOCYTES 0.2 % (0-5); MCHC 34.4 g/dL (31.0-37.0); MCV 87.1 fL (80.0-100.0); MEAN PLATELET VOLUME 9.7 fL (7.4-10.4); MONOCYTES 11.4 % (2-11); NEUTROPHILS 66.2 % (40-80); PLATELET COUNT 261 10x3/uL (130-400); RDW 13.1 % (11.5-14.5); WBC 11.1 10x3/uL (4.8-10.8)
[2018-05-11 09:23] LABS: CALC OSMOLALITY 279 mosm/kg (275-300); CALCIUM 9.2 mg/dL (8.5-10.1); CARBON DIOXIDE 26.3 mmol/L (21.0-32.0); CHLORIDE - SERUM 104 mmol/L (98-107); GLUCOSE 98 mg/dL (74-106); POTASSIUM - SERUM 4.1 mmol/L (3.5-5.1); SODIUM 139 mmol/L (136-145); UREA NITROGEN 17 mg/dL (7-18); eGFR NON AFRICAN AMERICAN 80 mL/min (90-120)
== END 2018-05-11 14:30 | disposition home or self-care (01) ==
LOC: D.CATH 07:57
PROVIDERS: Internal Medicine Interventional Cardiology
DX: I25.119 Atherosclerotic heart disease of native coronary artery with unspecified angina pectoris (principal); Z01.812 Encounter for preprocedural laboratory examination

== ENCOUNTER 2018-10-18 19:06 | Observation (INO) | payer BC ==
[~2018-10-18] VITALS: Ht 175.3 cm; Wt 71.1 kg
--- NOTE | ~2018-10-18 | DS ---
PATIENT:VAISHALI GALLOWAY :55 MEDICAL RECORD: [id number] DISCHARGE SUMMARY ADMISSION DATE: 10/18/18 DISCHARGE DATE: 10/19/18 DISCHARGE DIAGNOSES: 1. Unstable angina. 2. Coronary artery disease. 3. Hypertension. 4. Hyperlipidemia. HOSPITAL COURSE: Mr. Galloway presents with unstable anginal symptomatology, non-Q-wave myocardial infarction, found to have significant disease of the LAD and RCA, underwent successful PTCA and stent of both territories, was discharged home with the addition of aspirin and Plavix to his medical regimen. [facility]. TRANSINT:[id number] Voice Confirmation ID: [id number] DOCUMENT ID: [id number] MORIAH SANDERS MD CC: [id number] DICTATION DATE: 10/19/181199 NEUROPHYSIOLOGY TECH: 10/20/18227 DIS IN 10/19/18 [facility] [address] [place] [address]
--- NOTE | ~2018-10-18 | OP ---
PATIENT NAME: VAISHALI BLANK MEDICAL RECORD: [id number] :55 [facility]ATION:[facility] ADMISSION DATE:10/18/18 SURGEON: MORIAH SANDERS MD DATE OF OPERATION: 10/19/2018 PROCEDURES: 1. Laser atherectomy LAD. 2. PTCA stent LAD. 3. PTCA stent RCA. 4. Left heart catheterization. 5. Selective coronary angiography. 6. Left ventriculogram. INDICATION: Non-Q-wave myocardial infarction. PROCEDURE IN DETAIL: After informed consent was obtained and after a detailed description of risks, benefits as well as alternative therapies, the patient elected to proceed with angiogram and angioplasty. The right radial area was prepped and draped in normal sterile fashion. Right radial artery was cannulated via modified Seldinger technique with placement of 6-Romansh sheath. All catheters exchanged through this sheath. FINDINGS: The left ventriculogram was performed in standard 30-degree RAYMOND view, reveals good cardiac wall motion, ejection fraction is 60%. SELECTIVE CORONARY ANGIOGRAPHY: 1. Left main showed no significant angiographic disease. 2. Left anterior descending has previously placed stent with 99% in-stent restenosis and SHAWN 1 flow. 3. Left circumflex has mild irregularities, but no flow-limiting stenosis. 4. The right coronary has previously placed stent with 90% in-stent restenosis. PTCA STENT OF THE RCA: The stent used was a 3.5 x 38 mm [place]. Result was 0% residual stenosis. Laser atherectomy, PTCA stent of the LAD: Laser atherectomy catheter was used at 80/40. Multiple passes were made. Stenting was undertaken with a 3.0 x 30 mm Sandeep, the Result was 0% residual stenosis with anglican of SHAWN 3 flow. OVERALL IMPRESSION: Successful PTCA stent of the LAD and RCA, both going from 90% to 99% initial stenosis to 0% residual. TRANSINT:[id number] Voice Confirmation ID: [id number] DOCUMENT ID: [id number] MORIAH SANDERS MD CC: [id number] DICTATION DATE: 10/19/18 1202 TELEPHONE INSTALLER: 10/19/18 1212 [place] [address]
--- NOTE | ~2018-10-18 | HEMODYNAMI ---
PATIENT:VAISHALI BLANK MEDICAL RECORD: [id number] : 55 [id number] ADMISSION DATE: 10/18/18 Generatedon:10/19/201812:03 Patient name: VAISHALI BLANK Patient #: [id number] SSN: D OB: 1955 Date of study: 10/19/2018 Page: Of Hemodynamic Procedure Report Patient Data Patient Demographics Procedure consent was obtained First Name: VAISHALI Gender: Male Last Name: ABHAY : 1955 [facility] Initial: NELLY Age: 63 year(s) Patient #: [id number] Race: Unknown Additional ID: [id number] Contact details Address: [address] [place] [address] State: [place] City: [place] Zip code: [address] Past Medical History Allergies: No known allergies Admission Admission Data Admission Date: 10/18/2018 Admission Time: 19:43 Room #: D.2118 Height (in.): 74493.12 BSA: 70.16 (m2) Height (cm.): 21268 BMI: 0 (kg/m2) Weight (lbs.): 156.53 Weight (kg.): 71 Lab Results Lab Result Date: 10/19/2018 Lab Result Time: 0:00 Biochemistry Name Units Result Min Max BUN mg/dl 18 --(---*)-- 7 18 Creatinine mg/dl 0.9 --(-*--)-- 0.6 1.3 CBC Name Units Result Min Max Hematocrit % 42.5 --(*---)-- 42 54 Hemoglobin g/dl 14.6 --(-*--)-- 13.5 17.5 Procedure Procedure Types Cath Procedure Diagnostic Procedure [facility] w/Coronaries Sedation Charges Moderate Sedation up to 30 minutes PCI Procedure Coronary Stent Coronary Stent Initial Coronary Atherectomy Atherectomy w/Stent Coronary Initial Procedure Description Procedure Date Procedure Date: 10/19/2018 Procedure Start Time: 11:29 Procedure End Time: 12:03 Procedure Staff Name Function Aníbal Marte MD Performing Physician Viktoriya Fisher RT Scrub Cristina Ratliff RN Nurse Caren Momin RT Monitor Procedure Data Cath Procedure Fluoroscopy Diagnostic fluoroscopy Total fluoroscopy Time: 9.6 time: 9.6 min min Diagnostic fluoroscopy Total fluoroscopy dose: 896 dose: 896 mGy mGy Contrast Material Contrast Material Type Amount (ml) Isovue 300 140 Entry Location Entry Primary Successful Side Size Upsize Upsize Entry Closure Succes sful Closure Location (Fr) 1 (Fr) 2 (Fr) Remarks Device Remarks Radial Right 6 Fr artery Short Estimated blood loss: 10 ml Diagnostic catheters Device Type Used For End Catheter Placement DIAGNOSTIC [place] 110cm 5 Procedure Fr catheter ([id number]) Procedure Complications No complications Procedure Medications Medication Administration Route Dosage 0.9% NaCl I.V. 100 ml/hr Oxygen etCO2 Nasal cannula 2 l/min Lidocaine 2% added to field 20 Heparin Flush Bag added to field 2 bags (1000units/500ml NS) Radial Cocktail added to field 1 syringe (Verapamil 2mg/Nitro 400mcg/Heparin 1500units) Versed I.V. 2 mg Fentanyl I.V. 50 mcg Fentanyl I.V. 50 mcg Heparin Bolus I.V. 4000 units Versed I.V. 2 mg Fentanyl I.V. 50 mcg Plavix P.O. 75 mg Hemodynamics Rest BSA: 70.16 (m2) HGB: 14.6 (g/dl) O2 Consumption: Estimated: 7992.42 (ml/min) O2 Consumption indexed: Estimated:113.92 (ml/min/m) Heart Rate: 62 (bpm) Snapshots Pre Cath Intra NCS Post Cath Vital Signs Time Heart Resp SPO2 etCO2 NIBP (mmHg) Rhythm Pain Sedation Rate (ipm) (%) (mmHg) Status Level (bpm) 10:55:05 66 12 98 33.1 134/75(87) NSR 0 (11) 10(A) , No pain 10:59:23 60 13 97 36.1 129/61(90) NSR 0 (11) 10(A) , No pain 11:03:37 62 10 96 36.8 116/65(80) NSR 0 (11) 10(A) , No pain 11:07:51 60 13 97 39.1 115/56(80) NSR 0 (11) 10(A) , No pain 11:12:05 59 15 97 39.8 105/56(76) NSR 0 (11) 10(A) , No pain 11:16:15 57 14 97 40.6 113/54(77) NSR 0 (11) 10(A) , No pain 11:20:31 57 15 97 40.6 105/51(71) NSR 0 (11) 10(A) , No pain 11:24:43 60 15 97 39.8 106/53(76) NSR 0 (11) 10(A) , No pain 11:28:55 58 19 97 39.1 113/56(80) NSR 0 (11) 10(A) , No pain 11:33:02 68 15 96 29.3 94/49(70) NSR 0 (11) 10(A) , No pain 11:37:10 70 11 98 34.5 113/58(82) NSR 0 (11) 9(A) , No pain 11:41:22 64 11 95 36 104/52(74) NSR 0 (11) 9(A) , No pain 11:45:32 64 11 96 34.5 118/61(81) NSR 0 (11) 10(A) , No pain 11:49:46 65 13 96 36 124/67(101) NSR 0 (11) 9(A) , No pain 11:54:00 64 18 97 39.1 128/67(103) NSR 0 (11) 9(A) , No pain 11:58:14 66 18 97 40.6 131/70(108) NSR 0 (11) 10(A) , No pain 12:02:32 68 9 98 36.8 133/70(102) NSR 0 (11) 9(A) , No pain Medications Time Medication Route Dose Verified Delivered Reason Not es Effectiveness by by 10:54:34 0.9% NaCl I.V. 100 Aníbal Cristina used for ml/hr Rosanna Ratliff tax appraiser 10:54:40 Oxygen etCO2 2 l/min Aníbal Cristina used for Nasal Rosanna Ratliff procedure cannula RN 10:54:45 Lidocaine 2% added 20ml Aníbal Spangler for local to vial Rosanna Marte MD anesthetic field 10:54:52 Heparin Flush added 2 bags Aníbal Spangler used for Bag to Rosanna Marte MD procedure (1000units/500ml field NS) 10:54:57 Radial Cocktail added 1 Aníbal Aníbal used for (Verapamil to syringe Rosanna Marte MD procedure 2mg/Nitro field 400mcg/Heparin 1500units) 11:28:56 Fentanyl I.V. 50 mcg Aníbal Cristina for sedation Rosanna Ratliff RN 11:29:45 Versed I.V. 2 mg Aníbal Cristina for sedation Rosanna Ratliff RN 11:33:42 Fentanyl I.V. 50 mcg Aníbal Cristina for sedation Rosanna Ratliff RN 11:38:08 Heparin Bolus I.V. 4000 Aníbal Cristina for bethanie ified units Rosanna Ratliff anticoagulation with Dr. SCARLET Marte 11:47:37 Versed I.V. 2 mg Aníbal Cristina for sedation Rosanna Ratliff RN 11:47:41 Fentanyl I.V. 50 mcg Aníbal Cristina for sedation Rosanna Ratliff RN 11:59:22 Plavix P.O. 75 mg Aníbal Cristina for Rosanna Ratliff antiplatelet RN therapy Procedure Log Time Note 10:31:25 Signed procedure consent form obtained from patient. 10:31:26 Diagnostic Cath status Urgent 10:31:27 Time tracking: Regular hours (M-F 7:00 - 5:00) 10:31:30 Plan of Care:Hemodynamics will remain stable., Cardiac rhythm will remain stable., Comfort level will be maintained., Respiratory function will remain adequate., Patient/ family verbilizes understanding of procedure., Procedure tolerated without complication., Recovers from procedure without complications.. 10:31:36 Patient allergic to No known allergies 10:33:03 Lab Result : BUN 18 mg/dl 10:33:03 Lab Result : Hemoglobin 14.6 g/dl 10:33:03 Lab Result : Creatinine 0.9 mg/dl 10:33:03 Lab Result : Hematocrit 42.5 % 10:33:10 Patient Weight : 156.53 lbs 10:33:14 Patient Height : 88137.12 inches 10:35:30 Cristina Ratliff RN sent for patient. Start room use. 10:45:53 Patient received from Med II to CCL 1 Alert and oriented. Tansferred to table in Supine position. 10:45:56 Warm blankets applied, and bryan hugger turned on for patient comfort. 10:45:57 Correct patient and procedure confirmed by team. 10:45:57 ECG and BP/O2 sat monitors applied to patient. 10:53:57 Vital chart was started 10:54:34 0.9% NaCl 100 ml/hr I.V. was administered by Cristina Ratliff RN; used for procedure; 10:54:40 Oxygen 2 l/min etCO2 Nasal cannula was administered by Cristina Ratliff RN; used for procedure; 10:54:45 Lidocaine 2% 20ml vial added to field was administered by Aníbal Marte MD; for local anesthetic; 10:54:52 Heparin Flush Bag (1000units/500ml NS) 2 bags added to field was administered by Aníbal Marte MD; used for procedure; 10:54:57 Radial Cocktail (Verapamil 2mg/Nitro 400mcg/Heparin 1500units) 1 syringe added to field was administered by Aníbal Marte MD; used for procedure; 10:58:22 Baseline sample Acquired. 10:58:25 Rhythm: sinus rhythm 10:58:26 Full Disclosure recording started 10:58:29 Pre-procedure instructions explained to patient. 10:58:29 Pre-op teaching completed and patient verbalized understanding. 10:58:32 Family unavailable. 10:58:48 Patient NPO since Midnight. 10:58:50 Is patient on blood thinner?Yes 10:58:58 PRE LOADED ON PLAVIX 10:59:00 Patient diabetic? No. 10:59:03 Previous problem with sedation/anesthesia? No ? 10:59:04 Snore? Yes 10:59:05 Sleep apnea? No 10:59:06 Deviated septum? No 10:59:07 Opens mouth fully? Yes 10:59:07 Sticks out tongue? Yes 10:59:09 Airway obstruction? No ? 10:59:13 Dentures? Yes OUT 10:59:18 Pre procedure: right dorsailis pedis pulse 2+ Normal; easily identifiable; not easily obliterated 10:59:54 Modified Nate's test Ulnar < 7 seconds 10:59:58 Patient pain scale 0/10 ?. 11:00:06 IV patent on arrival in right forearm with 0.9% NaCl at [facility]. 11:00:09 Lab results completed and on chart. 11:00:11 Right Radial & Right Groin area was prepped with chlora-prep and draped in sterile fashion 11:00:12 Alarms reviewed by R. N. 11:00:13 Sharps counted by scrub and verified by R.N. 11:00:15 Use device set Radial Dx or PCI 11:00:16 ACIST Syringe (55461) opened to sterile field. 11:00:17 Medline Cath Pack ([id number]) opened to sterile field. 11:00:17 ACIST Hand Control (23884) opened to sterile field. 11:00:18 ACIST Manifold (99303) opened to sterile field. 11:00:18 Tegaderm 4 x 4 (1626W) opened to sterile field. 11:00:20 Bag Decanter (2002S) opened to sterile field. 11:00:24 DIAGNOSTIC WIRE .035 260cm J wire (145692) opened to sterile field. 11:00:24 MBrace Wrist Support ([id number]) opened to sterile field. 11:00:25 SHEATH 6FR Slender (70-9795) opened to sterile field. 11:25:31 Zero performed for pressure channel P1 11:28:11 --------ALL STOP TIME OUT------ 11:28:11 Final Timeout: patient, procedure, and site verified with staff and physician. All members of the team are in agreement. 11:28:13 Right Radial & Right Groin site verified by team. 11:28:15 Maximum allowable Isovue 300 dose 300ml. Physician notified. (300ml for normal creatinines. For patients with creatinine of 1.7 or higher multiply weight(kg) x 5 divided by creatinine.) 11:28:18 Fire Safety Assessment: A--An alcohol-based skin anteseptic being used preoperatively., C--Open oxygen or nitrous oxide is being used., D--An ESU, laser, or fiber-optic light is being used. 11:28:21 Physical assessment completed. ASA score P 2 - A patient with mild systemic disease as per Aníbal Marte MD. 11:28:23 Sedation plan: IV Moderate Sedation Medication:Versed, Fentanyl 11:28:56 Fentanyl 50 mcg I.V. was administered by Cristina Ratliff RN; for sedation; 11::45 Versed 2 mg I.V. was administered by Cristina Ratliff RN; for sedation; 11:29:51 Procedure started. 11:29:58 Local anesthetic to right radial artery with Lidocaine 2% by Aníbal Marte MD.INITIAL ACCESS ONLY 11:30:42 A 6 Fr Short sheath was inserted into the Right Radial artery 11:30:50 A DIAGNOSTIC [place] 110cm 5 Fr catheter ([id number]) was advanced over the wire and used for Procedure. 11:31:39 LV gram done using RAYMOND 11::42 Injector settings: Ml/sec: 7, Volume: 15, 11:32:12 EF : 60 % 11:32:26 LCA angiography performed. 11:33:42 Fentanyl 50 mcg I.V. was administered by Cristina Ratliff RN; for sedation; 11:33:47 Catheter exchanged over wire. 11:33:59 UNABLE TO ENGAGE RCA 11:34:06 GUIDE 6FR AR 1.0 SH catheter ([id number]) opened to sterile field. 11:35:07 INFLATOR Merit BasixCompak (WN4147) opened to sterile field. 11:35:07 CHOICE PT Extra Support 182cm wire ([id number]) opened to sterile field. 11:35:19 6 Fr AR 1 SH guide catheter was inserted over the wire 11:36:05 RCA angiography performed. 11:36:07 Catheter exchanged over wire. 11:36:33 GUIDE 6FR HS II SH catheter ([id number]) opened to sterile field. 11:37:35 6 Fr HS2 SH guide catheter was inserted over the wire 11:38:08 Heparin Bolus 4000 units I.V. was administered by Cristina Ratliff RN; for anticoagulation; verified with Dr. Marte 11:38:40 CHOICE ES 182 wire advanced. 11:38:45 Wire advanced across lesion. 11:40:46 Place stent Inflation Number: 1 A KEN RX 3.5 x 38 stent ([id number]) was prepped and advanced across the Prox RCA 90. The stent was deployed at 19 TYRONE for 0:10 (min:sec) 0. 11:41:03 Stent catheter was removed intact over wire. 11:41:04 Wire removed. 11:41:05 Guide catheter removed. 11:42:16 GUIDE 6FR XB 3.5 catheter ([id number]) opened to sterile field. 11:43:35 LASER ELCA 0.9 Rx atherectomy catheter (101637) opened to sterile field. 11:44:56 6 Fr XB 3.5 guide catheter was inserted over the wire 11:46:32 Guide Catheter removed. unable to cannulate vessel. 11:47:04 GUIDE 6FR EBU 3.0 catheter ([id number]) opened to sterile field. 11:47:31 6 Fr EBU 3 guide catheter was inserted over the wire 11:47:37 Versed 2 mg I.V. was administered by Cristina Ratliff RN; for sedation; 11:47:41 Fentanyl 50 mcg I.V. was administered by Cristina Ratliff RN; for sedation; 11:48:23 CHOICE ES 182 wire advanced. 11:48:25 Wire advanced across lesion. 11:49:26 Inflate balloon Inflation number: 1 A EUPHORA 2.5 x 20 Balloon ([id number]) was prepped and advanced across the Prox LAD , then inflated to 13 TYRONE for 0:00 (min:sec) . 11:49:30 Inflation number: 2 The EUPHORA 2.5 x 20 Balloon ([id number]) was reinflated across the Prox LAD , to 13 TYRONE for 0:00 (min:sec) . 11:49:36 Inflation number: 3 The EUPHORA 2.5 x 20 Balloon ([id number]) was reinflated across the Prox LAD , to 13 TYRONE for 0:00 (min:sec) . 11:49:54 Balloon removed over the wire. 11:51:53 Laser pass to pLAD with Fluence of 80 and Rate of 40. 11:52:49 Laser total pulses delivered: 1999 11:52:53 Laser total treatment time: 0 minutes 50 seconds 11:53:53 Laser catheter removed. 11:56:08 Place stent Inflation Number: 4 A KEN RX 3.0 x 30 stent ([id number]) was prepped and advanced across the Prox LAD 99. The stent was deployed at 17 TYRONE for 0:00 (min:sec) 0. 11:57:18 Stent catheter was removed intact over wire. 11:57:18 Wire removed. 11:57:19 Guide catheter removed. 11:57:48 Procedure ended.(Physican Out) 11:58:37 TR BAND Standard ([id number]) opened to sterile field. 11:59:14 Fluoroscopy time 09.60 minutes. 11:59:22 Plavix 75 mg P.O. was administered by Cristina Ratliff RN; for antiplatelet therapy; :59:24 Flurop Dose total: 896 11:59:24 Fluoroscopy dose: 896 mGy 11:59:28 Contrast amount:Isovue 300 140ml. 11:59:31 Sharps counted by scrub and verified by R.N. 11:59:33 TR band inflated with 10cc of air. 11:59:41 Post-procedure physical assessment completed. ASA score P 2 - A patient with mild systemic disease as per Aníbal Marte MD. 11:59:43 Post procedure rhythm: sinus rhythm 11:59:48 Estimated blood loss: 10 ml 11:59:49 Post procedure instruction explained to patient.Patient verbalizes understanding. 11:59:50 Patient needs reinforcement of post procedure teaching. 12:00:24 Procedure type changed to Cath procedure, Diagnostic procedure, LHC, LHC w/Coronaries, Sedation Charges, Moderate Sedation up to 30 minutes, PCI procedure, Coronary Stent, Coronary Stent Initial, Coronary Atherectomy, Atherectomy w/Stent Coronary Initial 12:00:57 Procedure and supply charges have been captured, reviewed, submitted and are correct. 12:00:59 Procedure Complication : No complications 12:03:03 Vital chart was stopped 12:03:03 See physician's report for complete and final results. 12:03:07 Report given to Pre/Post Procedure Room. 12:03:09 Patient transfered to Pre/Post Procedure Room with Bed. 12:03:11 Procedure ended. 12:03:11 Full Disclosure recording stopped 12:03:15 End room use (Document Last) Intervention Summary Intervention Notes Time ActionType Lesion and Equipment Used Action# Pressure Duration Attributes 11:40:46 Place stent Prox RCA KEN RX 3.5 x 1 19 00:10 38 stent ([id number]) 11:49:26 Inflate Prox LAD EUPHORA 2.5 x 1 13 00:00 balloon 20 Balloon ([id number]) 11:49:30 Reinflate Prox LAD EUPHORA 2.5 x 2 13 00:00 balloon 20 Balloon ([id number]) 11:49:36 Reinflate Prox LAD EUPHORA 2.5 x 3 13 00:00 balloon 20 Balloon ([id number]) 11:56:08 Place stent Prox LAD KEN RX 3.0 x 4 17 00:00 30 stent ([id number]) Device Usage Item Name Manufacture Quantity Catalog Number Hospital Part Current M inimal Lot# / Charge Number Stock Stock Serial# Code ACIST Syringe Acist 1 78669 292318 955030 953270 2 0 (39405) Medical Systems Inc Medline Cath Medline 1 [id number] 559664 64285 431319 5 Pack ([id number]) ACIST Hand Acist 1 27061 343052 899787 187563 5 Control Medical (72608) Systems Inc ACIST Manifold Acist 1 99352 744702 318750 649747 5 (51134) Medical Systems Inc Tegaderm 4 x 4 3M 1 1626W 530868 232479 054728 5 (1626W) Bag Decanter Microtek 1 2002S 764672 68001 604886 5 (2001S) Medical Inc. DIAGNOSTIC [facility] [place] 1 735666 174994 963110 040080 3 0 WIRE .035 260cm J wire (504452) MBrace Wrist Advanced 1 140-0250-00 888104 91330 741739 5 Support Vascular ([id number]) Dynamics SHEATH 6FR Terumo 1 [id number] 313140 158078 792186 5 Slender (80-1060) DIAGNOSTIC Terumo 1 40-5013 090067 833699 236044 5 [place] 110cm 5 Fr catheter (136110) GUIDE 6FR AR Medtronic 1 [id number] 809171 69708 572081 1 1.0 SH catheter ([id number]) INFLATOR Merit Merit 1 MY7319 375107 151960 555885 1 5 [email or web address] Medical (MO8750) CHOICE PT [place] 1 [id number] 816100 724181 585714 5 Extra Support Scientific 182cm wire ([id number]) GUIDE 6FR HS Medtronic 1 [id number] 865951 58898 335714 1 II SH catheter ([id number]) KEN RX 3.5 x Medtronic 1 [id number] 467623 5239267 299400 5 [id number] 38 stent ([id number]) GUIDE 6FR XB Cardinal 1 [id number] 873705 392820 613073 2 3.5 catheter Health (24612024) LASER ELCA 0.9 Terri 1 110004 605192 223811 349844 5 Rx atherectomy [facility] catheter (090842) (637915) GUIDE 6FR EBU Medtronic 1 [id number] 298066 84482 232572 0 3.0 catheter ([id number]) EUPHORA 2.5 x Medtronic 1 [id number] 132266 300942 278847 5 [id number] 20 Balloon ([id number]) KEN RX 3.0 x Medtronic 1 [id number] 041133 3781138 116795 5 [id number] 30 stent ([id number]) TR BAND Terumo 1 [id number] 621226 146533 948841 4 0 Standard ([id number]) Signature Audit [place] Time Signature Unsigned Intra-Procedure 10/19/2018 Caren Momin 12:03:34 PM RT(R) Signatures Monitor : Caren Momin Signature : RT Date : Time : [address] [place] [address]
[2018-10-18 20:44] VITALS: BP 108/60
[2018-10-18 20:49] LABS: CREATINE KINASE 130 UL (21-232)
[2018-10-18 20:52] LABS: TROPONIN-I 0.196 ng/mL (0.000-0.060)
[2018-10-19 01:29] VITALS: BP 117/62
[2018-10-19 01:30] VITALS: BP 123/55; Ht 175.3 cm; Wt 71.1 kg
[2018-10-19 05:17] LABS: BASOPHILS 0.2 % (0-2); EOSINOPHILS 5.8 % (0-7); HEMATOCRIT 42.5 % (42.0-54.0); HEMOGLOBIN 14.6 g/dL (13.5-17.5); IMMATURE GRANULOCYTES 0.2 % (0-5); LYMPHOCYTES 32.6 % (15-50); MCH 28.9 pg (26.0-34.0); MCHC 34.4 g/dL (31.0-37.0); MCV 84.2 fL (80.0-100.0); MEAN PLATELET VOLUME 10.1 fL (7.4-10.4); MONOCYTES 12.1 % (2-11); NEUTROPHILS 49.1 % (40-80); PLATELET COUNT 224 10x3/uL (130-400); RBC 5.05 10x6/uL (4.20-6.10); RDW 13.3 % (11.5-14.5); WBC 6.5 10x3/uL (4.8-10.8)
[2018-10-19 05:45] LABS: CALC OSMOLALITY 282 mosm/kg (275-300); CALCIUM 8.9 mg/dL (8.5-10.1); CARBON DIOXIDE 28.1 mmol/L (21.0-32.0); CHLORIDE - SERUM 107 mmol/L (98-107); CKMB 23.2 U/L (0.0-3.6); CREATINE KINASE 206 UL (21-232); CREATININE - SERUM 0.9 mg/dL (0.6-1.3); GLUCOSE 98 mg/dL (74-106); POTASSIUM - SERUM 4.2 mmol/L (3.5-5.1); SODIUM 141 mmol/L (136-145); UREA NITROGEN 18 mg/dL (7-18); eGFR NON AFRICAN AMERICAN > 90 mL/min (90-120)
[2018-10-19 05:46] LABS: TROPONIN-I 3.716 ng/mL (0.000-0.060)
[2018-10-19 06:22] VITALS: BP 121/67
[2018-10-19 08:13] VITALS: BP 115/58
--- NOTE | 2018-10-19 09:40 | HP ---
PATIENT: VAISHALI GALLOWAY MEDICAL RECORD: [id number] ACCOUNT: [id number] LOCATION:[facility].2118 : 55 ADMISSION DATE: 10/18/18 PCP: VERA LERNER MD HISTORY AND PHYSICAL EXAMINATION DIAGNOSES: 1. Non-Q-wave myocardial infarction. 2. Coronary artery disease. 3. Previous 2-vessel percutaneous transluminal coronary angioplasty stent April and May. 4. Smoking history. HISTORY OF PRESENT ILLNESS: Mr. Galloway is a gentleman known to us with a past history of 2-vessel coronary artery disease, PTCA stent of the LAD and RCA at the end of April and beginning of May. He was doing well until the last 2 days. He has had multiple episodes of chest discomfort that lasted approximately 30 minutes. He had a severe episode yesterday. His troponin was elevated. He was sent here. His troponin has gone up further. He does continue to have episodes of chest pain this morning. He is not on any medications at this time as it has been a problem with compliance with him with medications; however, without any medications his heart rate is in the 60s and systolic blood pressure 115. Hence, there is little room to work with any antianginal medications. He is on a nitro patch now, he continues to have the chest discomfort with the elevated troponins. PHYSICAL EXAMINATION: GENERAL APPEARANCE: Well-nourished, well-developed, appears stated age. Level of distress, comfortable. PSYCHIATRIC: Mental status, alert, normal affect. Orientation, oriented to time, place and person. EYES: Lids and conjunctiva, noninjected. No discharge, no pallor. ENT: Lips, teeth, gums, normal dentition. Oropharynx, no cyanosis, no pallor. NECK: Carotid arteries, bilateral normal upstroke, no bruits, no thrills. JUGULAR VEINS: No jugular venous pressure or distention. CERVICAL LYMPH NODES: Nontender, nonenlarged. THYROID: Not enlarged. Nontender. No nodules. LUNGS: Respiratory effort, unlabored. CHEST: Normal curvature. No thoracic deformity. No chest wall tenderness. Percussion, resonant. Auscultation, clear. No wheezes, no rales, no rhonchi. CARDIOVASCULAR: Precordial exam, nondisplaced. No heaves or pericardial thrills. Rate and rhythm, regular. Heart sounds, normal S1, normal S2. No S3, no gallop, no rub. Systolic murmur, not heard. Diastolic murmur, not heard. EXTREMITIES: No cyanosis, no edema. Peripheral pulses, full and equal in all extremities, except as noted. No bruits appreciated. ABDOMEN: Soft, nondistended. Normal aorta. No bruit. Nontender. No masses. Liver, nontender, no hepatomegaly. Spleen, nontender, no splenomegaly. MUSCULOSKELETAL: No joint tenderness. No joint swelling. No erythema. NEUROLOGICAL: Normal gait, normal strength, normal tone. SKIN: Warm and dry. OVERALL IMPRESSION: Non-Q-wave myocardial infarction with continued chest pain, abnormal ECG with T-wave inversions anteriorly suggestive of anterior ischemia. Heart rate and blood pressure are optimal. There is little room to work with any further medical management, hence we will proceed with coronary angiography. Further care depends upon findings of the angiography. HISTORY AND PHYSICAL [id number] VAISHALI GALLOWAY TRANSINT:[id number] Voice Confirmation ID: [id number] DOCUMENT ID: [id number] MORIAH SANDERS MD at 0940 CC: [id number] DICTATION DATE: 10/19/18901 BUSINESS ANALYST INTERN: 10/19/18 09 ADM IN [facility] [address] [place] [address]
--- NOTE | 2018-10-19 10:42 | NUR ---
PRE-OPS GIVEN. TO OPERATIONAL TRAINER BY BED.
--- NOTE | 2018-10-19 12:22 | NUR ---
RECEIVED PT FROM NURSE CLINICAL. PT SLEEPING BUT AWAKENS EASILY TO VERBAL STIMULI. DENIES ANY C/O CHEST PAIN OR NAUSEA AT THIS TIME. SINUS CATALINA AT 59. BP IS 119/64 TR BAND IS CDI TO RIGHT WRIST, FINGERS WARM AND CAP REFILL IS BRISK. RESP WITH EASE. CALL LIGHT IN REACH.
--- NOTE | 2018-10-19 12:38 | NUR ---
PT SLEEPING, AWAKENS EASILY TO VERBAL STIMULI, DENIES ANY C/O. TR BAND IS CDI, FINGERS WARM AND CAP REFILL IS BRISK. NSR, RATE IS 62. BP IS 121/70 NO FAMILY AT BEDSIDE, CALL LIGHT IN REACH.
--- NOTE | 2018-10-19 13:22 | NUR ---
1310 PT ALERT, SITTING UP IN BED VISITING WITH FRIEND. SANDWICH AND PO FLUIDS SERVED. TR BAND IS CDI TO RIGHT HAND, FINGERS WARM AND CAP REFILL IS BRISK. VSS, DENIES ANY C/O NE NEEDS AT THIS TIME.
[2018-10-19] MEDS ORDERED: PLAVIX75 MG PO (13:51)
[2018-10-19] MEDS ORDERED: BAYER CHEWABLE81 MG PO (14:09)
--- NOTE | 2018-10-19 14:22 | NUR ---
1340 PT HAS CANDIS SANDWICH AND PO FLUIDS WITH NO C/O. TR BAND IS CDI, FINGERS WARM AND CAP REFILL IS BRISK. PT IS ALERT AND DENIES ANY C/O. VSS, FRIEND AT BEDSIDE
--- NOTE | 2018-10-19 14:33 | NUR ---
PT SITTING UP IN ROOM, VISITING WITH . TR BAND IS CDI, FINGERS WARM AND CAP REFILL IS BRISK. VSS. DENIES ANY C/O CHEST PAIN. CALL LIGHT IN REACH.
--- NOTE | 2018-10-19 15:05 | NUR ---
3 CC OF AIR WEANED FROM TR BAND WITH NO BLEEDING NOTED. FINGERS WARM AND CAP REFILL IS BRISK. PT IS ALERT AND DENIES ANY C/O. VSS.
--- NOTE | 2018-10-19 15:25 | NUR ---
3 CC OF AIR WEANED FROM TR BAND WITH NO BLEEDING NOTED. FINGERS WARM AND CAP REFILL IS BRISK.
--- NOTE | 2018-10-19 16:26 | NUR ---
1545 ALL REMAINING AIR WEANED FROM TR BAND WITH NO BLEEDING NOTED. FINGERS WARM AND CAP REFILL IS BRISK. RADIAL PULSE PALPABLE. DC INSTRUCTIONS REVIEWED WITH PT AND WHO VERBALIZE UNDERSTANDING. PLAVIX PRESCRIPTION TO PT AND PT AND VERBALIZE UNDERSTANDING TO START THIS MEDICATION TOMORROW. 2X2 and TEGADERM APPLIED TO RIGHT WRIST, TR BAND REMOVED. 1600 IV DC'D WITH CATH INTACT AND PTR IS DRESING FOR DC TO HOME. 1615 PT HAS AMBULATED TO THE BATHROOM AND VOIDED QS. DENIES ANY C/O. DRESSING REMAINS CDI TO RIGHT WRIST, WRIST IMMOBILIZER IN PLACE. PT ESCORTED TO PRIVATE AUTO VIA WC BY NURSE WITH DRIVING HIM HOME. PT HAS ALL PERSONAL BELONGINGS AND DC INSTRUCTIONS AT TIME OF DC TO HOME.
== END 2018-10-19 16:15 | disposition home or self-care (01) ==
LOC: D.ER 19:06 → OBSVTIME 19:43 → D.M2 19:43 → D.CLR 10-19 12:15
PROVIDERS: Family Medicine; ADMIT Internal Medicine Interventional Cardiology; ATTEND Internal Medicine Interventional Cardiology
DX: I21.4 Non-ST elevation (NSTEMI) myocardial infarction (principal); R94.30 Abnormal result of cardiovascular function study, unspecified; I25.110 Atherosclerotic heart disease of native coronary artery with unstable angina pectoris; I10 Essential (primary) hypertension; E78.5 Hyperlipidemia, unspecified; T82.855A Stenosis of coronary artery stent, initial encounter; Y83.9 Surgical procedure, unspecified as the cause of abnormal reaction of the patient, or of later complication, without mention of misadventure at the time of the procedure

== ENCOUNTER → 2019-05-21 09:36 | Outpatient (CLI) | payer BC ==
[2018-10-19 01:30] VITALS: BMI 23.1
== END | disposition home or self-care (01) ==
LOC: D.HCCARDIO 09:36
PROVIDERS: ATTEND Internal Medicine Cardiovascular Disease
DX: I25.10 Atherosclerotic heart disease of native coronary artery without angina pectoris (principal)

== ENCOUNTER → 2019-06-03 08:36 | Outpatient (CLI) | payer BC ==
[~2019-06-03] VITALS: Ht 175.3 cm; Wt 75.5 kg
--- NOTE | ~2019-06-03 | HEMODYNAMI ---
PATIENT:VAISHALI BLANK MEDICAL RECORD: [id number] : 55 LOCATION:[facility] ADMISSION DATE: 06/03/19 Generatedon:06/03/201911:29 Patient name: VAISHALI BLANK Patient #: [id number] SSN: D OB: 1955 Date of study: 06/03/2019 Page: Of Hemodynamic Procedure Report Patient Data Patient Demographics Procedure consent was obtained First Name: VAISHALI Gender: Male Last Name: ABHAY : 1955 [facility] Initial: NELLY Age: 63 year(s) Patient #: [id number] Race: Unknown Additional ID: [id number] Contact details [address]: [address] [place] [address] State: [place] City: [place] Zip code: [address] Past Medical History Allergies: No known allergies Admission Admission Data Admission Date: 06/03/2019 Admission Time: 8:36 Procedure Procedure Types Cath Procedure Diagnostic Procedure LHC LHC w/Coronaries FFR/IVUS FFR Initial Sedation Charges Moderate Sedation up to 45 minutes PCI Procedure Coronary Stent Coronary Stent Initial Hemochron ACT Test Procedure Description Procedure Date Procedure Date: 06/03/2019 Procedure Start Time: 10:34 Procedure End Time: 11:18 Procedure Staff Name Function Aníbal Marte MD Performing Physician Viktoriya Fisher RT Monitor Anu Reno RT Scrub Sunny Harley RN Nurse Procedure Data Cath Procedure Fluoroscopy Diagnostic fluoroscopy Total fluoroscopy Time: time: 21.4 min 21.4 min Diagnostic fluoroscopy Total fluoroscopy dose: dose: 2517 mGy 2517 mGy Contrast Material Contrast Material Type Amount (ml) Isovue 300 131 Entry Location Entry Primary Successful Side Size Upsize Upsize Entry Closure Antoine ccessful Closure Location (Fr) 1 (Fr) 2 (Fr) Remarks Device Remarks Radial Right 6 Fr Mechanical artery Short Compression Femoral Right 6 Fr Exoseal artery Short Estimated blood loss: 5 ml Diagnostic catheters Device Type Used For End Catheter Placement DIAGNOSTIC [place] 110cm 5 Multi-vessel Fr catheter (106069) Angiography DIAGNOSTIC AR1 MOD 5Fr Right Coronary catheter ([id number]) Angiography Procedure Complications No complications Procedure Medications Medication Administration Route Dosage Oxygen etCO2 Nasal cannula 2 l/min Lidocaine 2% added to field 20 Heparin Flush Bag added to field 2 bags (1000units/500ml NS) 0.9% NaCl I.V. 100 ml/hr Radial Cocktail added to field 1 syringe (Verapamil 2mg/Nitro 400mcg/Heparin 1500units) Versed I.V. 2 mg Fentanyl I.V. 50 mcg Versed I.V. 2 mg Fentanyl I.V. 50 mcg Heparin Bolus I.V. 4000 units Plavix P.O. 75 mg Hemodynamics Rest Pre Cath Intra NCS Post Cath Vital Signs Time Heart Resp SPO2 etCO2 NIBP Rhythm Pain Sedation Rate (ipm) (%) (mmHg) (mmHg) Status Level (bpm) 10:32:22 73 18 98 36 138/71(99) NSR 0 (11) 10(A) , No pain 10:36:38 65 13 96 34.5 132/67(92) NSR 0 (11) 10(A) , No pain 10:40:52 75 15 93 36.8 105/51(82) NSR 0 (11) 10(A) , No pain 10:44:58 69 14 94 38.3 114/57(85) NSR 0 (11) 9(A) , No pain 10:49:08 70 10 95 39.8 114/56(85) NSR 0 (11) 9(A) , No pain 10:53:20 66 9 95 39.8 105/51(78) NSR 0 (11) 9(A) , No pain 10:57:25 67 10 95 39 107/58(84) NSR 0 (11) 9(A) , No pain 11:01:35 66 10 95 39 94/50(69) NSR 0 (11) 9(A) , No pain 11:05:37 66 10 94 39 113/57(78) NSR 0 (11) 9(A) , No pain 11:09:47 67 10 95 38.3 116/56(87) NSR 0 (11) 9(A) , No pain 11:13:59 64 10 95 13.5 127/56(77) NSR 0 (11) 10(A) , No pain 11:18:09 70 9 95 26.2 122/71(89) NSR 0 (11) 9(A) , No pain Medications Time Medication Route Dose Verified Delivered Reason Not es Effectiveness by by 10:31:22 Oxygen etCO2 2 l/min Aníbal Correa used for Nasal Rosanna Harley RN procedure cannula 10:31:27 Lidocaine 2% added 20ml Aníbal Spangler for local to vial Rosanna Marte MD anesthetic field 10:31:33 Heparin Flush added 2 bags Aníbal Spangler used for Bag to Rosanna Marte MD procedure (1000units/500ml field NS) 10:31:42 0.9% NaCl I.V. 100 Aníbal Correa Per physician ml/hr Rosanna Harley RN 10:31:50 Radial Cocktail added 1 Aníbal Spangler for (Verapamil to syringe Rosanna Marte MD vasodilation 2mg/Nitro field 400mcg/Heparin 1500units) 10:33:04 Fentanyl I.V. 50 mcg Aníbal Correa for sedation Rosanna Harley RN 10:33:57 Versed I.V. 2 mg Aníbal Correa for sedation Rosanna Harley RN 10:37:44 Versed I.V. 2 mg Aníbal Correa for sedation Rosanna Harley RN 10:37:48 Fentanyl I.V. 50 mcg Aníbal Correa for sedation Rosanna Harley RN 10:54:04 Heparin Bolus I.V. 4000 Aníbal Correa for bethanie ified units Rosanna Harley RN anticoagulation with dr marte 11:17:55 Plavix P.O. 75 mg Aníbal Correa for Rosanna Harley RN antiplatelet therapy Procedure Log Time Note 9:49:56 Diagnostic Cath Status : Elective 9:50:23 Procedure Status Elective Heart Cath (OP). 9:50:26 Sunny Harley RN sent for patient. Start room use. 9:50:27 Time tracking: Regular hours (M-F 7:00 - 5:00) 9:50:31 Plan of Care:Hemodynamics will remain stable., Cardiac rhythm will remain stable., Comfort level will be maintained., Respiratory function will remain adequate., Patient/ family verbilizes understanding of procedure., Procedure tolerated without complication., Recovers from procedure without complications.. 9:55:34 Patient received from Pre/Post Procedure Room to CCL 2 Alert and oriented. Tansferred to table in Supine position. 9:55:38 Signed procedure consent form obtained from patient. 9:55:40 Warm blankets applied, and bryan hugger turned on for patient comfort. 9:55:41 Correct patient and procedure confirmed by team. 9:56:11 ECG and BP/O2 sat monitors applied to patient. 9:56:25 H&P Date Dictated: 05/15/2019 Within 30 days and on chart., H&P Addendum completed by physician on day of procedure. (MUST COMPLETE FOR ALL OUTPATIENTS). 9:56:26 Pre-procedure instructions explained to patient. 9:56:28 Family in waiting room. 9:56:30 Patient NPO since Midnight. 9:56:38 Patient allergic to No known allergies 9:56:41 Is the patient allergic to Iodine/contrast media? No. 9:56:43 Was the patient premedicated? Yes 9:58:31 Is patient on blood thinner?Yes 9:58:34 ACC The patient was administered the following blood thiners within the last 24 hours: ACCPlavix 9:58:36 Patient diabetic? No. 9:58:38 Previous problem with sedation/anesthesia? No ? 9:58:40 Snore? Yes 9:58:41 Sleep apnea? No 9:58:42 Deviated septum? No 9:58:43 Opens mouth fully? Yes 9:58:43 Sticks out tongue? Yes 9:58:45 Airway obstruction? No ? 9:58:48 Dentures? No ? 9:58:51 Pre procedure: right dorsailis pedis pulse 2+ Normal; easily identifiable; not easily obliterated 9:58:56 Pre procedure: left dorsailis pedis pulse 2+ Normal; easily identifiable; not easily obliterated 9:58:58 Patient pain scale 0/10 ?. 9:59:02 IV patent on arrival in left forearm with 0.9% NaCl at O. 9:59:05 Lab results completed and on chart. 10:12:18 Risk of Mortality: <0.1 10:12:22 Risk of blood transfusion: 0.2 10:12:25 Risk of JESSE: 0.3 10:12:35 Right Radial & Right Groin area was prepped with chlora-prep and draped in sterile fashion 10:12:36 Alarms reviewed by Lise Davila 10:12:36 Sharps counted by scrub and verified by R.N. 10:31:12 Vital chart was started 10:31:22 Oxygen 2 l/min etCO2 Nasal cannula was administered by Sunny Harley RN; used for procedure; Verbal order read back and verified. 10:31:27 Lidocaine 2% 20ml vial added to field was administered by Aníbal Marte MD; for local anesthetic; Verbal order read back and verified. 10:31:33 Heparin Flush Bag (1000units/500ml NS) 2 bags added to field was administered by Aníbal Marte MD; used for procedure; Verbal order read back and verified. 10:31:42 0.9% NaCl 100 ml/hr I.V. was administered by Sunny Harley RN; Per physician; Verbal order read back and verified. 10:31:50 Radial Cocktail (Verapamil 2mg/Nitro 400mcg/Heparin 1500units) 1 syringe added to field was administered by Aníbal Marte MD; for vasodilation; Verbal order read back and verified. 10:32:03 Physician arrived 10:32:03 --------ALL STOP TIME OUT------ 10:32:11 Final Timeout: patient, procedure, and site verified with staff and physician. All members of the team are in agreement. 10:32:12 Right Radial & Right Groin site verified by team. 10:32:17 Fire Safety Assessment: A--An alcohol-based skin anteseptic being used preoperatively., C--Open oxygen or nitrous oxide is being used., D--An ESU, laser, or fiber-optic light is being used. 10:32:20 Physical assessment completed. ASA score P 2 - A patient with mild systemic disease as per Aníbal Marte MD. 10:32:24 1) 90+ Normal kidney functon but urine findings or structural abnormalities or genetic trait point to kidney disease. 10:32:27 Maximum allowable contrast dose (3.7 X eGFR X 0.75)249 ml. 10:32:32 Sedation plan: IV Moderate Sedation Medication:Versed, Fentanyl 10:32:35 Use device set Radial Dx or PCI 10:32:36 ACIST Syringe (98001) opened to sterile field. 10:32:37 Medline Cath Pack ([id number]) opened to sterile field. 10:32:37 Bag Decanter (2001S) opened to sterile field. 10:32:37 ACIST Hand Control (53257) opened to sterile field. 10:32:38 ACIST Manifold (12060) opened to sterile field. 10:32:38 Tegaderm 4 x 4 (1626W) opened to sterile field. 10:32:39 MBrace Wrist Support ([id number]) opened to sterile field. 10:32:41 SHEATH 6FR RAIN (6523866) opened to sterile field. 10:32:42 EMERALD Guide Wire (665-731) opened to sterile field. 10:33:04 Fentanyl 50 mcg I.V. was administered by Sunny Harley RN; for sedation; Verbal order read back and verified. 10:33:57 Versed 2 mg I.V. was administered by Sunny Harley RN; for sedation; Verbal order read back and verified. 10:34:51 Procedure started. 10:34:51 Full Disclosure recording started 10:34:56 Local anesthetic to right radial artery with Lidocaine 2% by Aníbal Marte MD.INITIAL ACCESS ONLY 10:34:57 Zero performed for pressure channel P1 10:35:23 A 6 Fr Short sheath was inserted into the Right Radial artery 10:37:15 A DIAGNOSTIC [place] 110cm 5 Fr catheter (825225) was advanced over the wire and used for Multi-vessel Angiography. 10:37:28 LV hemodynamics recorded. 10:37:29 LV gram done using RAYMOND 10:37:32 Injector settings: Ml/sec: 5, Volume: 15, 10:37:44 Versed 2 mg I.V. was administered by Sunny Harley RN; for sedation; Verbal order read back and verified. 10:37:48 Fentanyl 50 mcg I.V. was administered by Sunny Harley RN; for sedation; Verbal order read back and verified. 10:38:11 EF : 60 % 10:38:33 LCA angiography performed. 10:38:41 Injector settings: Ml/sec: 3, Volume: 6, 10:41:10 A DIAGNOSTIC AR1 MOD 5Fr catheter (448127O) was advanced over the wire and used for Right Coronary Angiography. 10:43:13 Catheter removed. unable to cannulate vessel. 10:43:24 GUIDE 6FR 3DRC catheter ([id number]) opened to sterile field. 10:43:35 RCA angiography performed. 10:43:37 Injector settings: Ml/sec: 3, Volume: 6, 10:46:20 ACCDominant side:Right 10:46:20 Catheter removed. 10:48:08 Local anesthetic to right femoral artery with Lidocaine 2% by Aníbal Marte MD.ADDITIONAL ACCESS 10:48:26 [place] Verrata Plus pressure wire (14620D) opened to sterile field. 10:48:27 INFLATOR Merit BasixCompak (OW0301) opened to sterile field. 10:48:56 SHEATH 6FR [place] (JXP981) opened to sterile field. 10:49:12 A 6 Fr Short sheath was inserted into the Right Femoral artery 10:49:23 CHOICE PT Extra Support 182cm wire (9039020L0) opened to sterile field. 10:49:42 ACC Pre-intervention SHAWN Flow is 3. 10:49:49 6 Fr 3drc guide catheter was inserted over the wire 10:50:16 Guide Catheter removed. 10:50:17 GUIDE 6FR 3DRIGHT catheter ([id number]) opened to sterile field. 10:50:18 Guide Catheter removed. unable to cannulate vessel. 10:50:34 GUIDE 6FR HS I catheter (LA6HSI) opened to sterile field. 10:53:37 6 Fr hs 1 guide catheter was inserted over the wire 10:53:45 Guide Catheter removed. unable to cannulate vessel. 10:53:56 GUIDE 6FR BRIDGET 90 catheter (JB2UJWJ) opened to sterile field. 10:54:04 Heparin Bolus 4000 units I.V. was administered by Sunny Harley RN; for anticoagulation; verified with dr marte Verbal order read back and verified. 10:54:06 6 Fr bridget 90 guide catheter was inserted over the wire 10:54:59 CHOICE PT Extra Support 182cm wire ([id number]) opened to sterile field. 10:56:05 Guide Catheter removed. unable to cannulate vessel. 10:58:08 GUIDE 6FR HS II catheter (FA0NIZU) opened to sterile field. 10:58:16 6 Fr hs 2 guide catheter was inserted over the wire 10:58:42 CHOICE PT Extra Support 182cm wire ([id number]) opened to sterile field. 11:00:47 choice pt wire advanced. 11:00:49 Wire removed. 11:01:01 GUIDE 6FR XBLAD 3.5 catheter (45519547) opened to sterile field. 11:01:58 choice pt wire advanced. 11:02:03 Wire removed. 11:02:14 Guide catheter removed. 11:02:39 GUIDE 6FR 3DRC catheter (HM62VFH) opened to sterile field. 11:06:48 6 Fr 3drc guide catheter was inserted over the wire 11:07:05 choice pt wire advanced. 11:09:12 Wire removed. 11:09:13 Guide catheter removed. 11:09:36 6 Fr xblad 3.5 guide catheter was inserted over the wire 11:09:39 FFR/IFR wire advanced. 11:09:42 Baseline FFR 1. 11:12:19 mLAD lesion measured at 0.81 with IFR 11:12:20 Pre PCI Site: [place] pLAD has 70% stenosis. 11:13:29 Place stent Inflation Number: 1 A KEN RX 3.0 x 15 stent ([id number]) was prepped and advanced across the Prox LAD 70. The stent was deployed at 17 TYRONE for 0:10 (min:sec) 0. 11:15:44 Stent catheter was removed intact over wire. 11:15:44 Wire removed. 11:15:45 Guide catheter removed. 11:15:54 Sheath removed intact; hemostasis achieved with Exoseal to the Right Femoral artery. 11:16:02 EXOSEAL 6Fr (EX600) opened to sterile field. 11:16:05 Procedure ended.(Physican Out) 11:16:17 Fluoroscopy time 21.40 minutes. 11:16:23 Flurop Dose total: 2517 11:16:23 Fluoroscopy dose: 2517 mGy 11:16:28 Dose Area Product 757605 mGy/cm. 11:16:32 Contrast amount:Isovue 300 131ml. 11:16:35 Maximum allowable dose exceeded? No. 11:16:36 Sharps counted by scrub and verified by R.N. 11:16:47 ZEPHYR REGULAR TR BAND (406300) opened to sterile field. 11:16:59 Sheath removed intact; hemostasis achieved with Mechanical Compression to the Right Radial artery. 11:16:59 [place] band inflated with 10cc of air. 11:17:00 Insertion/operative site no bleeding no hematoma. 11:17:02 Post-op/insertion site Right Femoral artery dressed using a 4 x 4 and Tegaderm. 11:17:08 Post right radial artery:stable 11:17:24 Post Procedure Pulses reassessed and unchanged 11:17:28 Post procedure rhythm: unchanged. 11:17:31 Estimated blood loss: 5 ml 11:17:32 Post procedure instruction explained to patient.Patient verbalizes understanding. 11:17:33 Patient needs reinforcement of post procedure teaching. 11:17:55 Plavix 75 mg P.O. was administered by Sunny Harley RN; for antiplatelet therapy; Verbal order read back and verified. 11:18:00 Procedure type changed to Cath procedure, Diagnostic procedure, LHC, C w/Coronaries, FFR/IVUS, FFR Initial, Sedation Charges, Moderate Sedation up to 45 minutes, PCI procedure, Coronary Stent, Coronary Stent Initial, Hemochron ACT Test 11:18:07 Procedure and supply charges have been captured, reviewed, submitted and are correct. 11:18:12 Procedure Complication : No complications 11:18:15 Vital chart was stopped 11:18:17 [facility] Findings: MVD- PCI performed (see procedure note) 11:18:25 Operative report dictated upon procedure completion. 11:18:25 See physician's report for complete and final results. 11:18:28 Report given to Pre/Post Procedure Room. 11:18:31 Patient transfered to Pre/Post Procedure Room with Stretcher. 11:18:33 Procedure ended. 11:18:33 Full Disclosure recording stopped 11:18:43 ACC-PCI Only Patient was given prescriptions, or instructed by Aníbal Marte MD to start/continue the following medications upon discharge: Plavix 11:18:44 End room use (Document Last) 11:20:06 ACT drawn and resulted at 250 seconds. (normal therapeutic range 180-240 seconds). Intervention Summary Intervention Notes Time ActionType Lesion and Equipment Used Action# Pressure Duration Attributes 11:13:29 Place stent Prox LAD KEN RX 3.0 x 1 17 00:10 15 stent ([id number]) Device Usage Item Name Manufacture Quantity Catalog Number Hospital Part Current Minimal Lot# / Charge Number Stock Stock Serial# Code ACIST Syringe Acist 1 72200 297658 671861 763253 20 (32417) Medical Systems Inc Medline Cath Medline 1 [id number] 398502 76096 479931 5 Pack ([id number]) Bag Decanter Microtek 1 2001S 450188 89742 548524 5 (2001S) Medical Inc. ACIST Hand Acist 1 29110 238549 067676 804222 5 Control Medical (25030) Systems Inc ACIST Manifold Acist 1 07863 976064 078929 880916 5 (30157) Medical Systems Inc Tegaderm 4 x 4 3M 1 1626W 539431 103324 461868 5 (1626W) MBrace Wrist Advanced 1 140-0250-00 162661 95715 727675 5 Support Vascular (651470971) Dynamics SHEATH 6FR Cardinal 1 5861583 159808 0825226 474530 5 RAIN (9424524) Health EMERALD Guide Cardinal 1 502-455 594289 395779 342720 5 Wire (502455) Health DIAGNOSTIC Terumo 1 405013 595632 184663 315774 5 [place] 110cm 5 Fr catheter (291484) DIAGNOSTIC AR1 Cardinal 1 045922K 598123 492950 031363 15 MOD 5Fr Health catheter (591183U) GUIDE 6FR 3DRC Medtronic 2 GO46UHD 260202 551446 418088 1 catheter (EK31GWN) [place] 1 70431Q 895228 217226382 471015 5 Verrata Plus pressure wire (38326U) INFLATOR Merit Merit 1 QZ7747 942933 696464 437156 15 [employer] Medical (IO4028) SHEATH 6FR Terumo 1 BIN473 254216 131817 616114 40 [place] (CCD520) CHOICE PT Gary 3 [id number] 561448 248594 330947 5 Extra Support Scientific 182cm wire (0562233Z2) GUIDE 6FR HS I Medtronic 1 LA6HSI 025088 75158 258174 1 catheter (LA6HSI) GUIDE 6FR BRIDGET Medtronic 1 TW9FHAD 302159 86963 087909 1 90 catheter (HU0FTDL) GUIDE 6FR HS Medtronic 1 PE5LKRH 254681 44267 029678 1 II catheter (XB1VMML) GUIDE 6FR Cardinal 1 [id number] 543324 501485 582686 10 XBLAD 3.5 Health catheter (55775007) KEN RX 3.0 x Medtronic 1 [id number] 634759 3791836 527537 5 [id number] 15 stent ([id number]) EXOSEAL 6Fr Cardinal 1 EX600 745635 370420 880927 10 (EX600) Health ZEPHYR REGULAR Cardinal 1 412808 578458 5740389 204370 5 TR BAND Health (261191) GUIDE 6FR Medtronic 1 [id number] 145300 719764 432950 1 3DRIGHT catheter ([id number]) Signature Audit [place] Stage Time Signature Unsigned Intra-Procedure 06/03/2019 Viktoriya Fisher 11:28:38 AM RT(R) Intra-Procedure 06/03/2019 Sunny Harley RN 11:29:05 AM Intra-Procedure 06/03/2019 Aníbal Marte 11:29:34 AM Signatures Performing Physician : Signature : Aníbal Marte MD Date : Time : Monitor : Viktoriya Fisher RT Signature : Date : Time : Nurse : Sunny Harley RN Signature : Date : Time : [facility] [address] [place] [address]
[2019-06-03 09:00] VITALS: BP 127/63; Ht 175.3 cm; Wt 75.5 kg
[2019-06-03 09:10] LABS: BASOPHILS 0.1 % (0-2); EOSINOPHILS 4.8 % (0-7); HEMATOCRIT 45.3 % (42.0-54.0); HEMOGLOBIN 15.2 g/dL (13.5-17.5); IMMATURE GRANULOCYTES 0.2 % (0-5); LYMPHOCYTES 27.3 % (15-50); MCH 29.3 pg (26.0-34.0); MCHC 33.6 g/dL (31.0-37.0); MCV 87.5 fL (80.0-100.0); MEAN PLATELET VOLUME 9.7 fL (7.4-10.4); MONOCYTES 9.4 % (2-11); NEUTROPHILS 58.2 % (40-80); RBC 5.18 10x6/uL (4.20-6.10); RDW 13.5 % (11.5-14.5)
[2019-06-03 09:22] LABS: ALT (SGPT) 40 U/L (10-68); CALC OSMOLALITY 284 mosm/kg (275-300); CALCIUM 8.7 mg/dL (8.5-10.1); CARBON DIOXIDE 27.1 mmol/L (21.0-32.0); CHLORIDE - SERUM 106 mmol/L (98-107); CHOL - HDL RATIO 7.7 ratio (2.3-4.9); CHOLESTEROL, TOTAL 224 mg/dL (0-200); GLUCOSE 97 mg/dL (74-106); HDL CHOLESTEROL 29 mg/dL (32-96); LDL CHOLESTEROL 180 mg/dL (0-100); LDL-HDL RATIO 6.2 ratio (1.5-3.5); POTASSIUM - SERUM 4.2 mmol/L (3.5-5.1); SODIUM 141 mmol/L (136-145); TRIGLYCERIDE 76 mg/dL (30-200); UREA NITROGEN 23 mg/dL (7-18); eGFR NON AFRICAN AMERICAN 80 mL/min (90-120)
[2019-06-03 09:24] LABS: PLATELET COUNT 273 10x3/uL (130-400)
--- NOTE | 2019-06-03 11:39 | NUR ---
REC TO ROOM FROM INSURANCE OFFICE MANAGER VIA STRETCHER. MONITORING INITIATED. R WRIST W ZBAND NO S/S BLEEDING/HEMATOMA. R GROIN WITH TEGADERM AND 4X4 CDI, SOFT, NO S/S BLEEDING OR HEMATOMA. PPP RLE. HAS CALL LIGHT, INSTRUCTED TO KEEP HEAD RELAXED ON PILLOW AND RLE STRAIGHT AND STILL.
--- NOTE | 2019-06-03 11:50 | NUR ---
R WRIST Z BAND CDI, NO S/S BLEEDING OR HEMATOMA. RAD PULSE PALPABLE. R GROIN CDI, SOFT, NO S/S BLEEDING OR HEMATOMA. PT SUPINE, REMINDED KEEP HEAD RELAXED ON PILLOW AND RLE STRAIGHT. NODS UNDERSTANDING. HR NSR 67, BP 122/63, SAT 95% RA.
--- NOTE | 2019-06-03 12:20 | NUR ---
R WRIST Z BAND CDI, RAD PULSE PALP, NO S/S BLEEDING/HEMATOMA R GROIN CDI, SOFT, NO S/S BLEEDING/HEMATOMA PULSES PALPABLE RUE AND RLE HR NSR 64, BP 125/64, SAT 96% RA, RR 13.
--- NOTE | 2019-06-03 12:35 | NUR ---
DR SANDERS IN TO SPEAK W PT RE PROCEDURE.
--- NOTE | 2019-06-03 13:05 | NUR ---
R GROIN SOFT, CDI. NO S/S BLEEDING OR HEMATOMA. R WRIST CDI, Z BAND, NO S/S BLEEDING OR HEMATOMA. GRANDSON AT BEDSIDE.
--- NOTE | 2019-06-03 13:35 | NUR ---
R WRIST Z BAND CDI, NO S/S BLEEDING OR HEMATOMA. R GROIN DRESSING CDI, GROIN SOFT, NO S/S BLEEDING OR HEMATOMA. CANDIS SIPS OF WATER. RAMONITA AT BEDSIDE.
--- NOTE | 2019-06-03 14:05 | NUR ---
R WRIST Z BAND CDI, NO S/S BLEEDING OR HEMATOMA. R GROIN SOFT, DRESSING CDI, NO S/S BLEEDING OR HEMATOMA. HR NSR,60, BP 122/58. STATES "READY TO GET UP". EXPL WILL RAISE HOB AT 1420 AND GET HIM SOME FOOD TO EAT. VERBALIZES UNDERSTANDING.
--- NOTE | 2019-06-03 14:19 | NUR ---
HOB RAISED TO PT COMFORT. 3ML AIR REMOVED FROM R WRIST Z BAND. NO S/S BLEEDING OR HEMATOMA. R GROIN DRESSING CDI, REMAINS SOFT, NO S/S BLEEDING OR HEMATOMA. PROVIDED SANDWICH, PUDDING. GRANDSON AT BEDSIDE.
--- NOTE | 2019-06-03 14:38 | NUR ---
R GROIN REMAINS CDI, SOFT. NO S/S BLEEDING OR HEMATOMA. R WRIST Z BAND 3ML AIR REMOVED FOR TOTAL OF 6 ML OUT, NO S/S BLEEDING OR HEMATOMA. RAMONITA AT BEDSIDE.
--- NOTE | 2019-06-03 14:55 | NUR ---
REMOVED 3ML AIR ZBAND R WRIST, TOTAL 9CC OUT. NO S/S BLEEDING OR HEMATOMA. R GROIN REMAINS SOFT, CDI, NO S/S HEMATOMA. IV DC, MONITORING DC. ASSISTED TO DRESS.
--- NOTE | 2019-06-03 15:00 | NUR ---
AMBULATED W STANDBY ASSIST TO REST ROOM. VOIDED WITHOUT REPORTED ISSUE. DISCHARGE INSTRUCTION COMPLETED. PT HAS NEW PRESCRIPTION FOR CURRENT MEDICATION PLAVIX IN HAND.
--- NOTE | 2019-06-03 15:12 | NUR ---
DC HOME VIA WHEELCHAIR TO PRIVATE CAR WITH GRANDSON. PT HAS ALL BELONGINGS.
--- NOTE | 2019-06-04 11:25 | OP ---
PATIENT NAME: VAISHALI BLANK MEDICAL RECORD: [id number] :55 LOCATION:D.CAT ADMISSION DATE: SURGEON: MORIAH SANDERS MD DATE OF OPERATION: 06/03/2019 PROCEDURES: 1. PTCA stent LAD. 2. IFR. 3. Left heart catheterization. 4. Selective coronary angiography. 5. Left ventriculogram. INDICATION: Angina and coronary artery disease. PROCEDURE IN DETAIL: After informed consent was obtained and after a detailed description of risks, benefits as well as alternative therapies, the patient elected to proceed with angiogram and angioplasty. The right femoral area was prepped and draped in normal sterile fashion. Right femoral artery was cannulated via modified Seldinger technique with placement of 6-[place] Citizen sheath. All catheters exchanged through this sheath. FINDINGS: Left ventriculogram was performed in a standard 30-degree RAYMOND view, reveals good cardiac wall motion throughout all segments. Overall ejection fraction estimated at 60%. SELECTIVE CORONARY ANGIOGRAPHY: 1. Left main is with no significant angiographic disease. 2. Left anterior descending has previously placed stent. This is widely patent. There is a hazy 70% stenosis proximal to this. IFR was abnormal at 0.81. 3. Left circumflex has mild irregularities, but no flow-limiting stenosis. 4. Right coronary has a previously placed stent. This is widely patent with no significant restenosis. No disease elsewise of the RCA or its branches. PTCA STENT OF THE LAD: The stent used was a 3.0 x 15 mm Sandeep. Result was 0% residual stenosis. An IFR normalized at 0.96. OVERALL IMPRESSION: Successful percutaneous transluminal angioplasty stent of the left anterior descending going from 70% initial stenosis with an abnormal IFR to 0% residual stenosis with normalization of the IFR after the intervention. TRANSINT:[id number] Voice Confirmation ID: [id number] DOCUMENT ID: [id number] MORIAH SANDERS MD at 1125 CC: [id number] DICTATION DATE: 06/03/19 1123 INTERNET NETWORK SPECIALIST: 06/03/19 1202 DEP CLI 06/03/19 [place] [address]
== END | disposition home or self-care (01) ==
LOC: D.CATH 05-29 10:30
PROVIDERS: ATTEND Internal Medicine Interventional Cardiology
DX: I25.119 Atherosclerotic heart disease of native coronary artery with unspecified angina pectoris (principal); E78.5 Hyperlipidemia, unspecified; R07.9 Chest pain, unspecified